=== PATIENT | male | born 1950 | race Caucasian/White ===

== ENCOUNTER 2018-11-02 07:01 | Day surgery (SDC) | payer OTHER, MEDICARE ==
--- NOTE | 2018-11-01 14:43 | RAD REPORT ---
EXAM DESCRIPTION: RAD - Chest Pa And Lat (2 Views) - 11/01/2018 2:33 pm CLINICAL HISTORY: preop, pending soft tissue mass removal, hypertension COMPARISON: Portable exam June 2016, two view exam March 2016 TECHNIQUE: PA and lateral views of the chest were obtained. FINDINGS: The lungs are clear of peripheral mass or infiltrate. No failure or volume overload. Inter stitial lung pattern matches prior imaging. No mediastinal or hilar abnormality. Trachea is in the mi dline. Heart size is normal and central vasculature is within normal limits. No pleural effusion o r pneumothorax seen. No acute bony finding noted. No aortic abnormality. IMPRESSION: Mild chronic interstitial lung disease matching prior imaging. No acute finding.
[2018-11-01 15:11] LABS: Absolute Lymphocytes (CBC) 1.9 K/uL (0.7-4.9); Hematocrit 48.9 % (39.6-49.0); Lymphocytes % 20.9 % (15.3-44.8); MPV 8.3 fL (7.6-11.3)
[2018-11-01 15:34] LABS: Potassium 3.6 mmol/L (3.5-5.1)
[2018-11-02] MEDS ORDERED: Ringers Lactate 1,000 ML IV ONE (07:18)
[2018-11-02] MEDS ORDERED: PROPOFOL 200 MG/20 ML VIAL IV ONE (07:30)
[2018-11-02] MEDS ORDERED: FENTANYL CITR 100 MCG/2 ML ONE (07:30)
[2018-11-02] MEDS ORDERED: MIDAZOLAM HCL 2 MG/2 ML INJ ONE (07:31)
[2018-11-02] MEDS ORDERED: LIDOCAINE 2% MPF 5 ML VIAL ONE (07:31)
[2018-11-02] MEDS ORDERED: ONDANSETRON 4 MG/2 ML VIAL ONE (07:34)
[2018-11-02] MEDS ORDERED: CEFAZOLIN/SWI 1gm 1 GM/10 ML SYR ONE (07:34)
[2018-11-02] MEDS ORDERED: ROCURONIUM 50 MG/5 ML VIAL IV ONE (07:35)
[2018-11-02] MEDS ORDERED: GLYCOPYRROLATE 0.2 MG/ML SYR ONE (08:20)
[2018-11-02] MEDS ORDERED: EPHEDRINE SULF 50 MG/ML VIAL ONE (08:22)
[2018-11-02] MEDS ORDERED: NS 0.9% VIAL 20 ML ONE (08:23)
--- NOTE | 2018-11-02 08:55 | P.BOP ---
Preoperative diagnosis: tender erythematous posterior neck mass Postoperative diagnosis: same Primary procedure: Excisional biopsy tender erythematous posterior neck mass 2.5 x 2.5 x 1.5cm Power Tong Operator: ILDA CALERO (UX RESEARCHER) Estimated blood loss: <10cc Specimen: mass Findings: as above Anesthesia: General Complications: None Transferred to: Recovery Room Condition: Good
--- NOTE | 2018-11-02 09:25 | EKG ---
Test Date: 2018-11-01 Test Time: 14:13:36 Lean Manufacturing Leader: VIRGINIE MEASUREMENT RESULTS: Intervals: Rate: 66 GA: 184 QRSD: 108 QT: 396 QTc: 415 [place]: P: 57 GA: 184 QRS: 21 T: 50 INTERPRETIVE STATEMENTS: Normal sinus rhythm Incomplete right bundle branch block Borderline ECG Compared to ECG 06/09/2016 06:42:53 Incomplete right bundle-branch block now present ST (T wave) deviation no longer present Electronically Signed On 11-02-18 09:24:02 CDT by Rebel Durant
[2018-11-02 11:20] VITALS: BP 116/66; TEMP 97.4; O2SAT 92
--- NOTE | 2018-11-02 19:49 | DS ---
Date of Discharge: 11/02/2018 Diagnosis: Tender erythematous posterior neck mass. Procedure: Excisional biopsy of tender erythematous posterior neck mass. Disposition: Home. Activity: As tolerated. No heavy lifting. Followup: Follow up in my office in 1 week. Call for appointment [phone]. Keep area dry for 48 ho urs, then may shower, then after that may remove outer dressings, put triple antibiotic and a gauze. Medications: Include Bactrim DS p.o. b.i.d., and Tylenol No. 3 every 4 hours p.r.n. pain. RONAN/BLANCA Voice ID: [id number] Report ID: [id number]
--- NOTE | 2018-11-02 20:10 | OP ---
Date of Procedure: 11/02/2018 Surgeon: Brenton Martínez MD Chute Tapper: KAMRAN Milligan. Postoperative Diagnosis: Tender erythematous posterior neck mass. Postoperative Diagnosis: Tender erythematous posterior neck mass. Procedure: Excisional biopsy of erythematous posterior neck mass 2.5 x 2.5 x 1.5 cm. Specimen: Mass. Anesthesia: General plus local. Indications: This is a case of a 67-year-old patient, comes to us with a tender erythematous, hand iii cutter ior neck mass very tender, so case was booked under Anesthesia. no purulent discharge at this moment. The benefits, alternatives, and risks of excision fully explained which include but are not limited to infection, bleeding, damage to adjacent structures, anesthesia complication, recurren ce, CA, and even . He also understands this may not relieve any symptoms. He might need more t potts one surgical intervention. He may require wound care. He signed a consent. The area of concern was marked by me and the patient in the holding room. Description Of Procedure: The patient was brought to the operating room, placed in supine position. Anesthesia was done without complication. Then, the patient was placed in lateral decubitus positio n with proper protection. A time-out was called. A neck was prepped and draped in a sterile fashion . Local anesthesia was applied, followed by a wedge incision of the skin with gross negative margins . Incision was carried down all the way down to deep subcutaneous tissue. The mass was excised, mar ked for orientation. Area was irrigated. Hemostasis was obtained and then closed in layers with 3-0 chromic deep and then 3-0 nylon on the skin. The sponge count, instrument counts were correct. The patient tolerated the procedure well. The patient was se nt to recovery in stable condition. RONAN/BLANCA Voice ID: [id number] Report ID: [id number]
== END 2018-11-02 10:23 | disposition home or self-care (01) ==
LOC: OR 07:01
PROVIDERS: ATTEND Surgery
PROC: 0JB40ZZ Excision of Right Neck Subcutaneous Tissue and Fascia, Open Approach (ICD-10-PCS; principal; 2018-11-02 08:15)
DX: R22.1 Localized swelling, mass and lump, neck (principal); I10 Essential (primary) hypertension; G47.33 Obstructive sleep apnea (adult) (pediatric); K21.9 Gastro-esophageal reflux disease without esophagitis; F17.210 Nicotine dependence, cigarettes, uncomplicated; Z88.3 Allergy status to other anti-infective agents; Z88.8 Allergy status to other drugs, medicaments and biological substances; Z82.49 Family history of ischemic heart disease and other diseases of the circulatory system
CPT/HCPCS: 93005; 85025; 80048; 36415; 88304; 71046; 11423; J2704; J2250; J3010; J0690; J2405; 88305

== ENCOUNTER 2019-11-27 19:04 | Inpatient (IN) | payer OTHER, MEDICARE ==
--- OUTSIDE RECORDS SUMMARY | 2019-11-27 19:07 | XMS REPORT | Continuity of Care Document ---
:1950 Author Organization [facility] t Address [address] [place] [address] Care Team Providers Name Role Phone Unavailable Unavailable Unavailable Payers Payer Name Policy Type Policy Number Effective Date Expiration Date S ource Problems This patient has no known problems. Allergies, Adverse Reactions, Alerts Allergy Allergy Status Severity Reaction(s) Onset Inactive Treating Comm ents Source Name Type Date Date Clinician sulfamet DA Active SV 2018-02 [facility] hoxazole 03-17 00:00: [address] trimetho DA Active SV 2018-02 [facility] prim 03-17 00:00: [address] levoflox DA Active CO 2018-0 [facility] acin 07-20 00:00: [address] atorvast DA Active CO 2018- [facility] atin 07-20 00:00: [address] Medications This patient has no known medications. Procedures This patient has no known procedures. Results Test Description Test Time Test Comments Results Result Comments Source LIPID PROFILE (CORONARY RISK) 2019-01-14 08:51:00 Test Item Value Reference Range Interpretation Comme nts TRIGLYCERIDES (test code = TRIG) 108 MG/DL TRIGLYCERIDES REFERENCE RANGE:Normal: < 150 mg/dLBorderline High: 150-199 m g/dLHigh: 200-499 mg/dLVery High: >=500 mg/dL CHOLESTEROL (test code = CHOL) 139 MG/DL <200 HDL CHOLESTEROL (test code = HDL) 50 MG/DL 40-59 N LIPOPROTEIN LDL (test code = LDL) 69 MG/DL 0-99 N OPTIMAL........ .<100 mg/dLNEAR OPTIMAL/ABOVE OPTIMAL........ .100-129 mg/dL BORDERLINE HIGH.........13 0-159 mg/dL HI GH.........160-189 mg/dL VERY HIGH.........>/ = 190 mg/dL ADD ONLIPID PROFILE (CORONARY RISK)2019-01-14 08:40:00 Test Item Value Reference Range Interpretation Comments TRIGLYCERIDES (test 108 MG/DL TRIGLYCE RIDES code = TRIG) REFERENCE RANGE:Normal: < 150 mg/dLBorderline High: 150-199 mg/dLHi gh: 200-499 mg/dLVe ry High: >=500 mg/ dL CHOLESTEROL (test code 139 MG/DL <200 = CHOL) HDL CHOLESTEROL (test 50 MG/DL 40-59 N code = HDL) LIPOPROTEIN LDL (test MG/DL 0-99 code = LDL) ADD ONPROTHROMBIN [id number] 08:03:00 Test Item Value Reference Range Interpretation Comments PROTHROMBIN TIME 10.4 SECONDS 9.6-11.6 N PATIENT (test code = PTP) INTERNATIONAL NORMAL 1.0 0.8-1.1 N The INR is to be RATIO (test code = used only for INR) monitoring oral anticoagulantth erap y. INDICATION I NR VALUE ---- ---- ---- -------1. Prophylaxis, de ep venous thrombos is, including hig h risk surgery. 2.0 - 3.0 2. Prophylaxis, de ep venous thrombos is, hip surgery, treatment for d eep venous thrombosis or pulmonary prevention of systemic emboli sm in patients wit h valvular heart disease, atrial fibrillation, tissue heart va lve, or acute myocar dial infarction. 2.0 - 3 .0 3. Mechanical prosthesis hear t valves, recurrent syste gema embolism. 3.0 - 4.5 PTT [id number] 08:03:00 Test Item Value Reference Range Interpretation Comments PTT ACTIVATED (test code = APTT) 26.2 SECONDS 22.0-33.0 N BASIC METABOLIC [id number] 07:56:00 Test Item Value Reference Range Interpretation Comments SODIUM (test code = 139 MMOL/L 137-145 N NA) POTASSIUM (test code = 4.1 MMOL/L 3.5-5.1 N K) CHLORIDE (test code = 101 MMOL/L 98-107 N CL) CARBON DIOXIDE (test 31 MMOL/L 22-30 H code = CO2) GLUCOSE (test code = 114 MG/DL 74-106 H GLU) BLOOD UREA NITROGEN 26 MG/DL 9-20 H (test code = BUN) GLOMERULAR FILTRATION > 60 Report ing units: RATE (test code = GFR) ml/mi n/1.73 m2 (Modified MDRD Formula)Referen ce Range: > or = 6 0 ml/min/1.73 m2 CREATININE (test code 0.80 MG/DL 0.66-1.25 N = CREAT) CALCIUM (test code = 9.1 MG/DL 8.4-10.2 N CA) [id number] 07:56:00 Test Item Value Reference Range Interpretation Comments MAGNESIUM (test code = MAG) 2.3 MG/DL 1.6-2.3 N BASIC METABOLIC [id number] 07:55:00 Test Item Value Reference Range Interpretation Comments SODIUM (test code = 139 MMOL/L 137-145 N NA) POTASSIUM (test code = 4.1 MMOL/L 3.5-5.1 N K) CHLORIDE (test code = 101 MMOL/L 98-107 N CL) CARBON DIOXIDE (test MMOL/L 22-30 code = CO2) GLUCOSE (test code = MG/DL 74-106 GLU) BLOOD UREA NITROGEN MG/DL 9-20 (test code = BUN) GLOMERULAR FILTRATION > 60 Report ing units: RATE (test code = GFR) ml/mi n/1.73 m2 (Modified MDRD Formula)Referen ce Range: > or = 6 0 ml/min/1.73 m2 CREATININE (test code 0.80 MG/DL 0.66-1.25 N = CREAT) CALCIUM (test code = MG/DL 8.7-9.7 CA) [id number] 07:55:00 Test Item Value Reference Range Interpretation Comments MAGNESIUM (test code = MAG) MG/DL 1.6-2.3 BASIC METABOLIC [id number] 07:53:00 Test Item Value Reference Range Interpretation Comments SODIUM (test code = NA) 139 MMOL/L 137-145 N POTASSIUM (test code = K) 4.1 MMOL/L 3.5-5.1 N CHLORIDE (test code = CL) 101 MMOL/L 98-107 N CARBON DIOXIDE (test code = CO2) MMOL/L 22-30 GLUCOSE (test code = GLU) MG/DL 74-106 BLOOD UREA NITROGEN (test code = MG/DL 9-20 BUN) GLOMERULAR FILTRATION RATE (test code = GFR) CREATININE (test code = CREAT) MG/DL 0.66-1.25 CALCIUM (test code = CA) MG/DL 8.7-9.7 [id number] 07:53:00 Test Item Value Reference Range Interpretation Comments MAGNESIUM (test code = MAG) MG/DL 1.6-2.3 BASIC METABOLIC [id number] 07:52:00 Test Item Value Reference Range Interpretation Comments SODIUM (test code = NA) MMOL/L 137-145 POTASSIUM (test code = K) MMOL/L 3.5-5.1 CHLORIDE (test code = CL) 101 MMOL/L 98-107 N CARBON DIOXIDE (test code = CO2) MMOL/L 22-30 GLUCOSE (test code = GLU) MG/DL 74-106 BLOOD UREA NITROGEN (test code = MG/DL 9-20 BUN) GLOMERULAR FILTRATION RATE (test code = GFR) CREATININE (test code = CREAT) MG/DL 0.66-1.25 CALCIUM (test code = CA) MG/DL 8.7-9.7 [id number] 07:52:00 Test Item Value Reference Range Interpretation Comments MAGNESIUM (test code = MAG) MG/DL 1.6-2.3 CBC W/AUTO [id number] 07:30:00 Test Item Value Reference Range Interpretation Comments WHITE BLOOD CELL (test code = 10.1 K/MM3 3.8-9.8 H WBC) RED BLOOD CELL (test code = 4.90 M/MM3 3.95-5.67 N RBC) HEMOGLOBIN (test code = HGB) 15.0 G/DL 12.4-16.7 N HEMATOCRIT (test code = HCT) 44.2 % 35.9-49.5 N MEAN CELL VOLUME (test code = 90 fL 81.7-96.1 N MCV) MEAN CELL HGB (test code = MCH) 30.6 pg 27.6-33.2 N MEAN CELL HGB CONCETRATION 33.9 % 32.9-35.5 N (test code = MCHC) RED CELL DISTRIBUTION WIDTH 14.3 % 12.1-15.2 N (test code = RDW) PLATELET COUNT (test code = 258 K/MM3 129-368 N PLT) MEAN PLATELET VOLUME (test code 9.6 fl 7.4-10.4 N = MPV) NEUTROPHIL % (test code = NT%) 75.8 % 43-75 H IMMATURE GRANULOCYTE % (test 0.9 % 0.0-2.0 N code = IG%) LYMPHOCYTE % (test code = LY%) 13.1 % 14-44 L MONOCYTE % (test code = MO%) 9.8 % 4-13 N EOSINOPHIL % (test code = EO%) 0.3 % 0-6 N BASOPHIL % (test code = BA%) 0.1 % 0-2 N NUCLEATED RBC % (test code = 0.0 % 0-1.0 N NRBC%) NEUTROPHIL # (test code = NT#) 7.65 K/mm3 2.0-7.6 H IMMATURE GRANULOCYTE # (test 0.09 x10 3/uL 0-0.03 H code = IG#) LYMPHOCYTE # (test code = LY#) 1.32 K/mm3 1.0-3.8 N MONOCYTE # (test code = MO#) 0.99 K/mm3 0.1-0.8 H EOSINOPHIL # (test code = EO#) 0.03 K/mm3 0.0-0.2 N BASOPHIL # (test code = BA#) 0.01 K/mm3 0.0-0.2 N NUCLEATED RBC # (test code = 0.00 K/mm3 0.0-0.1 N NRBC#)
[2019-11-27 21:00] LABS: Basophils % 0.5 % (0-1.3); Hematocrit 44.4 % (39.6-49.0); Lymphocytes % 17.6 % (15.3-44.8); MPV 7.8 fL (7.6-11.3); RBC Red Blood Cell Count 4.93 M/uL (4.33-5.43)
--- NOTE | 2019-11-27 21:01 | RAD REPORT ---
EXAM DESCRIPTION: RAD - Foot Right 3 View - 11/27/2019 8:15 pm CLINICAL HISTORY: PAIN, chronic right foot wound with increasing pain COMPARISON: Foot Right 3 View dated 11/06/2019 FINDINGS: No fracture, dislocation or periosteal reaction. No acute or destructive bone process. Deg enerative change at the first MTP joint is relatively mild. Soft tissues over the dorsum of the foot are more edematous than seen in October. No air or foreign body. IMPRESSION: No acute bone or joint finding. Increased soft tissue thickening and edema over the dorsum of the foot. No air or foreign body in the soft tissues.
[2019-11-27 21:25] LABS: C-Reactive Protein 3.62 mg/L (<3.00)
[2019-11-27 21:27] LABS: Urine Blood NEGATIVE (NEG); Urine Glucose NEGATIVE (NEG); Urine Protein NEGATIVE (NEG); Urine Specific Gravity <1.005 (1.005-1.030)
--- NOTE | 2019-11-27 21:34 | EDPHYS ---
Physician Documentation [facility] Name: Bronson Tyler Age: 68 yrs Sex: Male : 1950 Arrival Date: 11/27/2019 Time: 19:07 Bed 20 Private MD: ED Physician Rubens Aguila HPI: 11/26 19:50 This 68 yrs old Male presents to ER via Ambulatory with complaints of Wound cp Infection, FOOT. 19:50 The patient presents with cellulitis of the right foot. cp 19:50 Description: draining, erythematous, swollen, warm. Onset: The symptoms/episode cp began/occurred last month. Possible cause(s): Patient reports dropping trailer onto foot last month day weekend. Patient reports being placed initially on Amoxicillin for infection of right foot without resolution. Has been treated at wound care by DR Benson and referred to ED for evaluation. Patient reports having allergic reaction after taking 5 days of Doxycycline for infection. Historical: - Allergies: 19:31 Levaquin; ll1 19:31 Lipitor; ll1 19:31 Bactrim; ll1 - PMHx: 19:31 Hyperlipidemia; Hypertension; ll1 - PSHx: 19:31 Appendectomy; ll1 - Immunization history:: Flu vaccine is up to date. - Social history:: Smoking status: Patient reports the use of cigarette tobacco products, smokes one pack cigarettes per day. ROS: 19:55 Constitutional: Negative for body aches, chills, fever, poor PO intake. cp 19:55 Eyes: Negative for injury, pain, redness, and discharge. cp 19:55 ENT: Negative for ear pain, sore throat, difficulty swallowing, difficulty handling secretions. 19:55 Cardiovascular: Negative for chest pain, palpitations. 19:55 Respiratory: Negative for cough, shortness of breath, wheezing. 19:55 Abdomen/GI: Negative for abdominal pain, nausea, vomiting, and diarrhea. 19:55 Skin: Positive for cellulitis, of the right foot and right lower leg. 19:55 Neuro: Negative for altered mental status, headache, weakness. 19:55 All other systems are negative. Exam: 20:05 Constitutional: The patient appears in no acute distress, alert, awake, non-toxic, well cp developed, well nourished. 20:05 Head/Face: Normocephalic, atraumatic. cp 20:05 Eyes: Periorbital structures: appear normal, Conjunctiva: normal, no exudate, no injection, Lids and lashes: appear normal, bilaterally. 20:05 ENT: External ear(s): are unremarkable, Nose: is normal, Posterior pharynx: Airway: no evidence of obstruction, patent. 20:05 Chest/axilla: Inspection: normal. 20:05 Cardiovascular: Rate: normal, Rhythm: regular, Pulses: Pulses are 2+ in right dorsalis pedis artery. Edema: is not appreciated, JVD: is not appreciated. 20:05 Respiratory: the patient does not display signs of respiratory distress, Respirations: normal, no use of accessory muscles, no retractions, labored breathing, is not present, Breath sounds: are clear throughout, no decreased breath sounds, no stridor, no wheezing. 20:05 Abdomen/GI: Inspection: abdomen appears normal. 20:05 Skin: cellulitis, that is moderate, on the right foot and right lower leg, noted "golf ball" size open wound extending through dermis layer dorsum right foot with scant purulent drainage, advancing erythema extending proximally to lower right leg and mild swelling. 20:05 Neuro: Orientation: to person, place \\T\\ time. Mentation: is normal. Vital Signs: 19:28 BP 154 / 68; Pulse 79; Resp 17; Temp 98.5; Pulse Ox 97% ; Pain 0/10; ll1 19:30 BP 135 / 62; Pulse 80; Resp 18; Temp 98.1; Pulse Ox 97% on R/A; Pain 4/10; jv1 19:32 Weight 86.18 kg; Height 5 ft. 11 in. (180.34 cm); ll1 20:30 BP 131 / 80; Pulse 78; Resp 17; Temp 98.1; Pulse Ox 98% on R/A; Pain 2/10; jv1 21:30 BP 140 / 79; Pulse 70; Resp 18; Temp 98.0; Pulse Ox 98% ; Pain 0/10; jv1 22:21 BP 137 / 72; Pulse 75; Resp 18; Temp 98.1; Pulse Ox 97% ; Pain 0/10; jv1 22:45 BP 134 / 71; Pulse 70; Resp 18; Temp 98.1; Pulse Ox 97% on R/A; Pain 0/10; jv1 19:32 Body Mass Index 26.50 (86.18 kg, 180.34 cm) ll1 MDM: 19:17 Patient medically screened. cp 20:00 Differential diagnosis: abscess, cellulitis, sepsis, osteomyelitis. cp 21:30 Data reviewed: vital signs, nurses notes, lab test result(s), radiologic studies, plain cp films. Physician consultation: Prince Evonne OBRIEN was called at 21:30, was contacted at 21:30, regarding admission, to the medical/surgical unit. patient's condition. 11/26 19:49 Order name: ESR; Complete Time: 21:28 cp 11/26 19:49 Order name: CRP; Complete Time: 21:28 cp 11/26 19:49 Order name: Blood Culture Adult (2) cp 11/26 19:49 Order name: Wound Culture cp 11/26 19:49 Order name: CBC with Diff; Complete Time: 21:28 cp 11/26 21:07 Interpretation: Normal except: WBC 11.2. cp 11/26 19:49 Order name: BMP; Complete Time: 21:28 cp 11/26 19:47 Order name: XRAY Foot RIGHT 3 View; Complete Time: 21:07 cp 11/26 19:49 Order name: Procalcitonin; Complete Time: 21:07 cp 11/26 19:49 Order name: Lactate; Complete Time: 20:58 cp 11/26 19:49 Order name: IV; Complete Time: 20:45 cp 11/26 21:10 Order name: Urine Dipstick--Ancillary (enter results); Complete Time: 21:28 mw2 Administered Medications: 21:41 Dru grams of (vancoMYCIN 1 grams, NS 0.9% 250 ml) Route: IVPB; Rate: 125 ml/hr; jv1 Infused Over: 2 hrs; Site: right forearm; 22:55 Follow up: Response: No adverse reaction; IV Status: Infusion continued upon admission jv1 Disposition: 11/27 00:01 Co-signature as Attending Physician, Rubens Aguila MD. pkl Disposition: 11/27/19 21:33 Hospitalization ordered by Prince Evonne for Inpatient Admission. Preliminary diagnosis are Cellulitis of right lower limb, Open wound of foot - right, Failed Outpatient Therapy. - Bed requested for Telemetry/MedSurg (Inpatient). - Status is Inpatient Admission. jb4 - Condition is Stable. - Problem is an ongoing problem. - Symptoms are unchanged. Signatures: Dispatcher [employer] EDRubens Greene MD MD pkl Page, Corey, PA PA cp Xochilt Davila, RN RN Brandon Carrillo, ANDREIA RN jb4 Moira Boo RN RN jv1 Jody Roldan RN RN ll1 Corrections: (The following items were deleted from the chart) 11/26 21:34 21:33 Hospitalization Ordered by Prince Evonne OBRIEN for Inpatient Admission. Preliminary cp diagnosis is Cellulitis of right lower limb; Open wound of foot - right. Bed requested for Telemetry/MedSurg (Inpatient). Status is Inpatient Admission. Condition is Stable. Problem is an ongoing problem. Symptoms are unchanged. 21:59 21:34 11/27/2019 21:33 Hospitalization Ordered by Prince Evonne OBRIEN for Inpatient cg Admission. Preliminary diagnosis is Cellulitis of right lower limb; Open wound of foot - right; Failed Outpatient Therapy. Bed requested for Telemetry/MedSurg (Inpatient). Status is Inpatient Admission. Condition is Stable. Problem is an ongoing problem. Symptoms are unchanged. 23:08 21:59 11/27/2019 21:33 Hospitalization Ordered by Prince Evonne OBRIEN for Inpatient jb4 Admission. Preliminary diagnosis is Cellulitis of right lower limb; Open wound of foot - right; Failed Outpatient Therapy. Bed requested for Telemetry/MedSurg (Inpatient). Status is Inpatient Admission. Condition is Stable. Problem is an ongoing problem. Symptoms are unchanged.
--- NOTE | 2019-11-27 21:34 | ER ---
Nurse's Notes [facility] Name: Bronson Tyler Age: 68 yrs Sex: Male : 1950 Arrival Date: 11/27/2019 Time: 19:07 Bed 20 Private MD: Diagnosis: Cellulitis of right lower limb;Open wound of foot-right;Failed Outpatient Therapy Presentation: 11/26 19:28 Chief complaint: Patient states: Dropped a tail gate trailer onto right foot day ll1 weekend. Has had wound to top of foot since. Wound care once weekly. States it has gotten red in the past 3 days. No fever. Sent in for evaluation of foot infection. Coronavirus screen: Client denies travel out of the [place] in the last 14 days. At this time, the client does not indicate any symptoms associated with coronavirus-19. Ebola Screen: Patient denies travel to an Ebola-affected area in the 21 days before illness onset. Initial Sepsis Screen: Does the patient meet any 2 criteria? No. Patient's initial sepsis screen is negative. Does the patient have a suspected source of infection? Yes: Skin breakdown/wound. Risk Assessment: Do you want to hurt yourself or someone else? Patient reports no desire to harm self or others. Onset of symptoms was November 25, 2019. 19:28 Method Of Arrival: Ambulatory ll1 19:28 Acuity: GHANSHYAM 3 ll1 Historical: - Allergies: 19:31 Levaquin; ll1 19:31 Lipitor; ll1 19:31 Bactrim; ll1 - PMHx: 19:31 Hyperlipidemia; Hypertension; ll1 - PSHx: 19:31 Appendectomy; ll1 - Immunization history:: Flu vaccine is up to date. - Social history:: Smoking status: Patient reports the use of cigarette tobacco products, smokes one pack cigarettes per day. Screenin:30 Abuse screen:. Nutritional screening: No deficits noted. Tuberculosis screening: No jv1 symptoms or risk factors identified. Fall Risk None identified. Assessment: 19:30 General: Appears in no apparent distress. uncomfortable, well groomed, Behavior is jv1 calm, cooperative, appropriate for age. Pain: Complains of pain in right foot Pain does not radiate. Pain currently is 4 out of 10 on a pain scale. Quality of pain is described as aching, Pain began redness began 3 days ago. Neuro: Level of Consciousness is awake, alert, obeys commands, Oriented to person, place, time, situation, Appropriate for age Payer Specialist are equal bilaterally Moves all extremities. Gait is steady, Speech is normal. Cardiovascular: Denies chest pain, Heart tones S1 S2 Capillary refill < 3 seconds. Respiratory: Airway is patent Respiratory effort is even, unlabored, Respiratory pattern is regular, symmetrical, Breath sounds are clear bilaterally. GI: No signs and/or symptoms were reported involving the gastrointestinal system. Abdomen is round non-distended. : No signs and/or symptoms were reported regarding the genitourinary system. EENT: No signs and/or symptoms were reported regarding the EENT system. Derm: Wound noted right foot. Musculoskeletal: No signs and/or symptoms reported regarding the musculoskeletal system. Capillary refill < 3 seconds, Range of motion: intact in all extremities. Injury Description: patient stated he got the wound when his truck's tailgate fell on it on weekend. 20:30 Reassessment: Patient appears in no apparent distress at this time. No changes from jv1 previously documented assessment. Patient and/or family updated on plan of care and expected duration. Pain level reassessed. Patient is alert, oriented x 3, equal unlabored respirations, skin warm/dry/pink. Patient denies pain at this time. 21:30 Reassessment: Patient appears in no apparent distress at this time. No changes from jv1 previously documented assessment. Patient and/or family updated on plan of care and expected duration. Pain level reassessed. Patient is alert, oriented x 3, equal unlabored respirations, skin warm/dry/pink. Provider in the room with pt and explained that he needs to be hospitalized. Patient denies pain at this time. 21:52 Reassessment: hospitalist in the room with pt. jv1 22:21 Reassessment: Patient appears in no apparent distress at this time. No changes from jv1 previously documented assessment. Patient and/or family updated on plan of care and expected duration. Pain level reassessed. Patient is alert, oriented x 3, equal unlabored respirations, skin warm/dry/pink. Patient denies pain at this time. 22:45 Reassessment: Patient appears in no apparent distress at this time. No changes from jv1 previously documented assessment. Patient and/or family updated on plan of care and expected duration. Pain level reassessed. Patient is alert, oriented x 3, equal unlabored respirations, skin warm/dry/pink. Patient denies pain at this time. 22:54 Reassessment: called report to Emperatriz Galvan RN. jv1 Vital Signs: 19:28 BP 154 / 68; Pulse 79; Resp 17; Temp 98.5; Pulse Ox 97% ; Pain 0/10; ll1 19:30 BP 135 / 62; Pulse 80; Resp 18; Temp 98.1; Pulse Ox 97% on R/A; Pain 4/10; jv1 19:32 Weight 86.18 kg; Height 5 ft. 11 in. (180.34 cm); ll1 20:30 BP 131 / 80; Pulse 78; Resp 17; Temp 98.1; Pulse Ox 98% on R/A; Pain 2/10; jv1 21:30 BP 140 / 79; Pulse 70; Resp 18; Temp 98.0; Pulse Ox 98% ; Pain 0/10; jv1 22:21 BP 137 / 72; Pulse 75; Resp 18; Temp 98.1; Pulse Ox 97% ; Pain 0/10; jv1 22:45 BP 134 / 71; Pulse 70; Resp 18; Temp 98.1; Pulse Ox 97% on R/A; Pain 0/10; jv1 19:32 Body Mass Index 26.50 (86.18 kg, 180.34 cm) ll1 ED Course: 19:07 Patient arrived in ED. bp1 19:15 Nicholas Franco PA is PHCP. cp 19:15 Rubens Aguila MD is Attending Physician. cp 19:23 Arm band placed on Patient placed in an exam room, on a stretcher. ll1 19:30 Triage completed. ll1 19:30 Patient has correct armband on for positive identification. Bed in low position. Call jv1 light in reach. Side rails up X 1. 20:00 Inserted saline lock: 22 gauge in right forearm, using aseptic technique. Missed jv1 attempt(s): 20 gauge in left antecubital area. 20:15 XRAY Foot RIGHT 3 View In Process Unspecified. EDMS 21:32 Prince Douglass MD is Hospitalizing Provider. cp 22:22 No provider procedures requiring assistance completed. Patient admitted, IV remains in jv1 place. Administered Medications: 21:41 Dru grams of (vancoMYCIN 1 grams, NS 0.9% 250 ml) Route: IVPB; Rate: 125 ml/hr; jv1 Infused Over: 2 hrs; Site: right forearm; 22:55 Follow up: Response: No adverse reaction; IV Status: Infusion continued upon admission jv1 Outcome: 21:33 Decision to Hospitalize by Provider. cp 22:22 Admitted to Med/surg via wheelchair, room 231. jv1 22:22 Condition: stable 23:08 Patient left the ED. jb4 Signatures: Dispatcher [employer] EDMS Nicholas Franco PA PA cp Brandon Carrillo RN RN jb4 Moira Boo RN RN jv1 Jody Roldan RN RN ll1 Saumya Chester [facility]
[2019-11-27] MEDS ORDERED: NA CHLORIDE 0.9% 250 ML ONE (21:47)
[2019-11-27] MEDS ORDERED: VANCOMYCIN 1 GM/VIAL ONE (21:47)
--- NOTE | 2019-11-27 22:10 | P.HP ---
Certification for Inpatient Patient admitted to: Inpatient With expected LOS: >2 Midnights Practitioner: I am a practitioner with admitting privileges, knowledge of patient current condition, hospital course, and medical plan of care. Services: Services provided to patient in accordance with Admission requirements found in Title 42 Section 412.3 of the Code of Federal Regulations Patient History Date of Service: 11/27/19 Reason for admission: Right foot pain and swelling History of Present Illness: Patient is a 68-year-old male with [facility], [facility], hypertension, hyperlipidemia. He presents to the ER complaining of worsening her right foot swelling and pain. Patient had an open injury to his R foot approximately 1 month ago when the tail end of his trailer fell on the dorsum of his right foot. It created an open shallow wound. He was seen by Dr. Levi from surgery at the [facility] and was treated with silver nitrate. His symptoms improved after completing a 10-day course of amoxicillin, which she took with doxycycline but the latter had to be discontinued due to an allergic reaction. Patient briefly improved for re- experiencing the symptoms again which are mainly ankle swelling, redness on the dorsum of foot and pain. He denies any systemic signs and symptoms of fever and chills. His PCP performed a superficial wound cultures on 11/05 and it showed MRSA. Allergies levofloxacin [From Levaquin] Allergy (Severe, Verified 11/02/18 07:41) Anaphylaxis atorvastatin calcium [From Lipitor] Allergy (Verified 11/02/18 07:41) Anaphylaxis Home Medications: Amlodipine Besylate 10 mg PO [id number] 06/08/16 Aspirin [Aspirin EC 81 MG] 81 mg PO DAILY 06/08/16 Carvedilol 25 mg PO BID 06/08/16 Clonidine HCl 0.2 mg PO BID 06/08/16 Cyanocobalamin [Vitamin B-12*] 5,000 mcg PO DAILY 06/08/16 Dexlansoprazole [Dexilant] 60 mg PO DAILY 06/08/16 Docosahexanoic AC/Epa [Fish Oil 1,000 MG*] 1,400 mg PO DAILY 06/08/16 Ferrous Fumarate/Vit Bcomp&C [Super B-Complex Caplet] 1 each PO DAILY 06/08/16 Hydralazine HCl 25 mg PO BID 06/08/16 Meloxicam 15 mg PO DAILY 06/08/16 Multivitamin [Multiple Vitamins] 1 tab PO DAILY 06/08/16 [place]-3 Fatty Acids [[place]-3] 1,000 mg PO DAILY 06/08/16 Rosuvastatin [Crestor*] 20 mg PO DAILY 06/08/16 Ubidecarenone [Co Q-10] 200 mg PO DAILY 06/08/16 Fluticasone/Salmeterol [Advair 250/50 Diskus] 1 puff IH BID #1 disk 06/10/16 Irbesartan [Avapro] 150 mg PO BID 11/01/18 L.acidoph,Paracasei, B.lactis [Probiotic] 1 each PO DAILY 11/01/18 Magnesium Oxide [Magnesium] 250 mg PO DAILY 11/01/18 Codeine/APAP [Tylenol W/Codeine #3 tab] 1 tab PO Q4HP PRN #20 tab 11/02/18 Sulfamethoxazole/Trimethoprim [Bactrim Ds Tablet] 1 each PO BID #12 tablet 11/02/18 - Past Medical/Surgical History Diabetic: No -: HTN -: Sleep apnea -: Melanoma that was excised - Social History Alcohol use: No CD- Drugs: No Caffeine use: Yes Physical Examination - Physical Exam General: Alert, In no apparent distress, Cooperative HEENT: Atraumatic, Normocephalic, EOMI Neck: Supple Respiratory: Clear to auscultation bilaterally, Normal air movement Cardiovascular: Normal pulses, Regular rate/rhythm, Normal S1 S2 Gastrointestinal: Normal bowel sounds, Soft and benign, Non-distended, Other (Obese abdomen) Musculoskeletal: No clubbing, No contractures, Swelling, Erythema, Tenderness, Warmth Integumentary: No rashes, Skin breakdown, Tenderness/swelling, Erythema, Warmth Neurological: Normal speech, Sensation intact, Normal affect - Studies Laboratory Data (last 24 hrs) 11/27/19 20:48: Sodium 139, Potassium 4.0, BUN 13, Creatinine 1.10, Glucose 147 H 11/27/19 20:48: WBC 11.2 H, Hgb 15.3, Hct 44.4, Plt Count 229 Assessment and Plan - Problems (Diagnosis) (1) Open wound of right foot Current Visit: Yes Status: Acute (2) Open wound of right foot with complication Current Visit: No Status: Acute (3) GERD (gastroesophageal reflux disease) Current Visit: No Status: Chronic Qualifiers: Esophagitis presence: esophagitis presence not specified Qualified Code(s): K21.9 - Gastro-esophageal reflux disease without esophagitis (4) HTN (hypertension) Onset Date: 06/08/16 Current Visit: No Status: Chronic Qualifiers: Hypertension type: essential hypertension Qualified Code(s): I10 - Essential (primary) hypertension (5) Hyperlipidemia Current Visit: No Status: Chronic Qualifiers: Hyperlipidemia type: unspecified Qualified Code(s): E78.5 - Hyperlipidemia, unspecified (6) Obstructive sleep apnea Current Visit: No Status: Chronic (7) Tobacco abuse Current Visit: No Status: Chronic - Advance Directives Does patient have a Living Will: Yes Does patient have a Durable POA for Healthcare: No Physician Review Additional Text: Assessment 68 year old year old male with tobacco smoking, HTN, HLD and MAYTE admitted with a R foot cellulitis. He has a 2-inch size, non-healing shallow ulcer on the dorsum of the R foot. A RLE arterial Doppler on 11/05 showed mild peripheral artery disease. Wound cultures from 11/05 showed MRSA Open wound of R foot Peripheral vascular disease Tobacco smoking HTN HLD MAYTE PLAN Admit inpatient with telemetry Follow up blood and wound cultures from 11/26 Start vancomycin Consult Surgery (Dr. Levi) and wound care center
[2019-11-27] MEDS ORDERED: CODEINE 30MG/APAP 300MG TAB PO PRN (22:42)
[2019-11-27 23:56] VITALS: BMI 26.5
[2019-11-28] MEDS: PANTOPRAZOLE 40MG TABLET PO SCH (07:00)
[2019-11-28] MEDS: ASPIRIN EC 81 MG TAB PO SCH (08:49)
[2019-11-28] MEDS: cloNIDine HCL 0.1 MG TAB PO SCH ×2 (08:49→20:35)
[2019-11-28] MEDS: ROSUVASTATIN 10 MG TAB PO SCH (08:50)
[2019-11-28] MEDS: carvediloL 25 MG TAB PO SCH ×2 (08:50→17:00)
[2019-11-28] MEDS: MULTIVITAMIN TAB PO SCH (08:50)
[2019-11-28] MEDS ORDERED: OMEGA PO SCH (09:00)
[2019-11-28] MEDS ORDERED: HOME MED 1 EA UNK (Dexlansoprazole [Dexilant] 60 MG) PO SCH (09:00)
[2019-11-28] MEDS ORDERED: FATTY ACIDS PO SCH (09:00)
[2019-11-28] MEDS ORDERED: CYANOCOBALAMIN 1,000 MCG TAB PO SCH (09:00)
[2019-11-28] MEDS ORDERED: HOME MED 1 EA UNK (Fluticasone/Salmeterol [Advair 250/50 Diskus*] 1 PUFF) IH SCH (09:00)
[2019-11-28] MEDS ORDERED: DOCOSAHEXANOIC AC/EPA 1000 MG PO SCH (09:00)
[2019-11-28] MEDS: COENZYME Q10- 200 MG CAP PO SCH (09:00)
[2019-11-28] MEDS: VANCOMYCIN 1.25 GM in NA CHLORIDE 0.9% 250 ML IVPB SCH ×2 (10:31→20:36)
--- NOTE | 2019-11-28 12:19 | P.PN ---
Subjective Date of Service: 11/28/19 Chief Complaint: Right foot pain and swelling Patient currently has no complain. He has been afebrile. Physical Examination - Vital Signs Temperature: 97 F Blood Pressure: 153/77 Pulse: 68 Respirations: 18 Pulse Ox (%): 95 - Physical Exam General: Alert, In no apparent distress, Oriented x3 HEENT: Mucous membr. moist/pink Neck: Supple, JVD not distended Respiratory: Clear to auscultation bilaterally, Normal air movement Cardiovascular: No edema, Regular rate/rhythm, Normal S1 S2 Gastrointestinal: Normal bowel sounds, Soft and benign, No tenderness Musculoskeletal: No swelling Integumentary: Other (Shallow ulcer on the dorsum of right foot with spots of slough.) Neurological: Normal speech, Normal strength at 5/5 x4 extr - Studies Laboratory Data (last 24 hrs) 11/27/19 20:48: Sodium 139, Potassium 4.0, BUN 13, Creatinine 1.10, Glucose 147 H 11/27/19 20:48: WBC 11.2 H, Hgb 15.3, Hct 44.4, Plt Count 229 Microbiology Data (last 24 hrs): 11/27/19 20:05 Wound - Right Foot Gram Stain - Final Assessment And Plan - Current Problems (Diagnosis) (1) Open wound of right foot Current Visit: Yes Status: Acute (2) Open wound of right foot Current Visit: Yes Status: Acute (3) Tobacco abuse Current Visit: No Status: Chronic - Plan Nonhealing ulcer of the right foot. Wound culture prior to admission showing MRSA. Continue IV vancomycin. General surgery-Dr. Benson to see patient. Wound care Pain management as needed. Physician Review Additional Text: Assessment 68 year old year old male with tobacco smoking, HTN, HLD and MAYTE admitted with a R foot cellulitis. He has a 2-inch size, non-healing shallow ulcer on the dorsum of the R foot. A RLE arterial Doppler on 11/05 showed mild peripheral artery disease. Wound cultures from 11/05 showed MRSA Open wound of R foot Peripheral vascular disease Tobacco smoking HTN HLD MAYTE PLAN Admit inpatient with telemetry Follow up blood and wound cultures from 11/26 Start vancomycin Consult Surgery (Dr. Levi) and wound care center
--- NOTE | 2019-11-28 14:45 | P.CNS ---
Date of Consult: 11/28/19 PC: This 68-year-old male presented to the emergency room with severe pain in his right foot for diagnosis and treatment. HPC: Patient had a injury to his foot about 5 weeks ago. Has an open wound on the dorsum of his right foot. Has been slow to heal. He has been seen in the Wound Care Center. He has been treated with various entities in an effort to keep the wound clean and dry. He noticed over the last 48 hr that his foot has become in clean seen me red, swollen, and painful. PMH: Hypertension SOC: Allergies as listed above SYS REVIEW: Has been in relatively good health. No acute issues at the moment. O/E awake alert vital Signs are stay HEENT: Within normal limb Chest: Chest movement equal bilateral ABD: Saw LOCO: Has an open wound over the dorsum of his foot measuring approximately 5 cm x 3 cm. It is full-thickness skin loss. DATA: Elevated white cell count IMPRESSION: This patient was admitted for possible infection. He has been on vancomycin. I feel it may have been a more a a reaction to his medications for his surgical dressings peer PLAN: I have been talking to the patient in the Wound Care Center about doing a split-thickness skin graft once the wound had adequately debrided. I feel this is the opportune time to do it. I will take him tomorrow for a split-thickness skin graft from the right thigh to the right dorsum of his foot. Risks of this procedure have been discussed. The possibility of bleeding, infection, loss of graft as well as infection were explained. Grafted failure as well as contracture of the wounds were explained. He understands and wants to proceed.
[2019-11-29] MEDS: PANTOPRAZOLE 40MG TABLET PO SCH (05:41)
[2019-11-29] MEDS: carvediloL 25 MG TAB PO SCH (05:41)
[2019-11-29] MEDS: ASPIRIN EC 81 MG TAB PO SCH (09:00)
[2019-11-29] MEDS: ROSUVASTATIN 10 MG TAB PO SCH (09:00)
[2019-11-29] MEDS: COENZYME Q10- 200 MG CAP PO SCH (09:00)
[2019-11-29] MEDS: MULTIVITAMIN TAB PO SCH (09:00)
[2019-11-29] MEDS: cloNIDine HCL 0.1 MG TAB PO SCH ×2 (09:54→21:13)
[2019-11-29] MEDS: VANCOMYCIN 1.25 GM in NA CHLORIDE 0.9% 250 ML IVPB SCH ×2 (09:56→10:00)
[2019-11-29] MEDS ORDERED: DIPHENHYDRAMINE 50 MG/ML VIAL IV ONE (10:11)
--- NOTE | 2019-11-29 11:27 | EKG ---
Test Date: 2019-11-29 Test Time: 08:47:34 [employer] Operator: FAIZA MEASUREMENT RESULTS: Intervals: Rate: 54 MO: 178 QRSD: 110 QT: 434 QTc: 411 [place]: P: 65 MO: 178 QRS: 38 T: 50 INTERPRETIVE STATEMENTS: Sinus bradycardia Incomplete right bundle branch block Borderline ECG Compared to ECG 11/01/2018 14:13:36 Sinus rhythm no longer present Electronically Signed On 11-29-19 11:26:57 CDT by Tha Watters
[2019-11-29] MEDS ORDERED: MINERAL OIL, LITE 10 ML VIAL ONE ×2 (11:59→12:15)
[2019-11-29] MEDS ORDERED: Ringers Lactate 1,000 ML IV ONE (12:05)
[2019-11-29] MEDS ORDERED: propofoL 200 MG/20 ML VIAL IV ONE (12:14)
[2019-11-29] MEDS ORDERED: MIDAZOLAM HCL 2 MG/2 ML INJ ONE (12:15)
[2019-11-29] MEDS ORDERED: LIDOCAINE 2% MPF 5 ML VIAL ONE (12:15)
[2019-11-29] MEDS ORDERED: FENTANYL CITR 100 MCG/2 ML ONE (12:15)
--- NOTE | 2019-11-29 12:24 | P.PN ---
Date of Service: 11/29/19 S: Patient is comfortable today, did have some itchiness under his arms, was possibly from the IV antibiotics. Discussed the surgery with his and is comfortable about surgery today. O: Wound is clean A: Patient is received antibiotics, wound is clean, P: I will take him the operating room for split-thickness skin graft from his right thigh to the right dorsum foot. The risks of this procedure have been discussed. The possibility of bleeding, infection, failed graft, need for further surgeries and procedures as well as scar release have been described. He understands and wants us to proceed.
[2019-11-29] MEDS ORDERED: GLYCOPYRROLATE 0.2 MG/ML SYR ONE (13:07)
[2019-11-29] MEDS ORDERED: EPHEDRINE SULF 50 MG/ML VIAL ONE (13:19)
[2019-11-29] MEDS ORDERED: KETOROLAC 30 MG/ML INJ ONE (14:06)
[2019-11-29] MEDS ORDERED: HYDROMORPHONE HCL 1 MG/ML INJ ONE (14:29)
--- NOTE | 2019-11-29 14:56 | P.OP ---
Preoperative diagnosis: Open wound to the dorsum of the right foot Postoperative diagnosis: The same Primary procedure: Split-thickness skin graft from right thigh to dorsal right foot Anesthesia: General Estimated blood loss: Less than 10 cc Operative Technique: The patient brought the operating room and placed supine on the table the induction of adequate general anesthesia, the area of the right foot and right leg was prepped with a Betadine solution, draped in usual aseptic manner. Attention was turned towards the right upper thigh. This area was wiped down with alcohol to decrease the skin. Attention was now turned towards the dorsal right foot while the alcohol was trying. On the dorsum of the right foot the patient has an open wound measures approximately 3 inches x 1-1/2 inches. It is relatively clean at the moment. It was partially debrided using a cutting curette to lift off the fibrinous exudate again is down to we could bleeding base. A dressing was placed over the wound. Attention was now turned towards the right upper thigh. Using the dermatome a 1 inch wide 14,000 of an inch graft was taken. It was necessary to take 3 passes so we found a graft that was of adequate texture. It was then placed on the telegraphic typewriter mechanic and meshed at a ratio 1 1. The pieces skin was now placed over wound. It was tacked in place using chromic sutures. At this point, a piece of Adaptic was placed over the grafted area. This was then packed with cotton balls. A sponge was placed on top of this over which we placed a Tegaderm dressing. The dressing was now vacuumed by a placing a needle attached to the suction to completely take all air out. This hole was then covered with another piece of Tegaderm. Good pressure dressing having been applied, the right upper thigh was dressed with Adaptic and a Kerlix roll. It had been inject with of 0.25% Marcaine to allow for adequate analgesia during the postoperative period. A protective Orthopedic Blue was also placed over the foot to help mobilize it over the next few days until the graft takes. At the end of procedure he was stable when sent to the recovery room. Needle sponge instrument count were correct. Transferred to: Recovery Room Condition: Good
--- NOTE | 2019-11-29 15:09 | P.PN ---
Subjective Date of Service: 11/29/19 Chief Complaint: Right foot pain and swelling Patient currently has no complain. He is scheduled for skin graft of his right foot wound today. Physical Examination - Vital Signs Temperature: 97.1 F Blood Pressure: 151/82 Pulse: 66 Respirations: 18 Pulse Ox (%): 96 - Physical Exam General: Alert, In no apparent distress HEENT: Mucous membr. moist/pink Neck: Supple Respiratory: Clear to auscultation bilaterally, Normal air movement Cardiovascular: No edema, Regular rate/rhythm, Normal S1 S2 Gastrointestinal: Normal bowel sounds, Soft and benign, No tenderness Integumentary: Other (Ulcer at the dorsum of right foot.) Neurological: Other (Nonfocal.) - Studies Microbiology Data (last 24 hrs): 11/27/19 20:05 Wound - Right Foot Gram Stain - Final Assessment And Plan - Current Problems (Diagnosis) (1) Open wound of right foot Current Visit: Yes Status: Acute (2) Tobacco abuse Current Visit: No Status: Chronic - Plan Nonhealing ulcer of the right foot. Wound culture prior to admission showing MRSA. Continue IV vancomycin. Cultures: No growth to date. General surgery-Dr. Benson recommend skin graft today. Continue wound care. Pain management as needed.
[2019-11-29] MEDS ORDERED: FAMOTIDINE 20 MG/2 ML VIAL IV ONE (17:00)
[2019-11-29] MEDS: AMLODIPINE 10 MG TAB PO SCH (17:05)
[2019-11-29] MEDS: DIPHENHYDRAMINE 50 MG/ML VIAL IV PRN ×2 (17:06→23:04)
[2019-11-29] MEDS ORDERED: HYDRALAZINE HCL 20 MG/ML VIAL IV PRN (18:14)
[2019-11-30] MEDS: PANTOPRAZOLE 40MG TABLET PO SCH (05:00)
[2019-11-30] MEDS: DIPHENHYDRAMINE 50 MG/ML VIAL IV PRN (05:00)
[2019-11-30 05:45] LABS: Absolute Lymphocytes (CBC) 1.3 K/uL (0.7-4.9); Basophils % 0.9 % (0-1.3); Hematocrit 45.2 % (39.6-49.0); Lymphocytes % 14.9 % (15.3-44.8); MPV 8.2 fL (7.6-11.3); RBC Red Blood Cell Count 5.02 M/uL (4.33-5.43)
[2019-11-30 06:01] LABS: Potassium 3.7 mmol/L (3.5-5.1)
[2019-11-30 08:05] VITALS: BP 159/73; TEMP 97.7
--- NOTE | 2019-11-30 08:52 | P.DS ---
Admission Date: 11/27/19 Discharge Date: 11/30/19 Disposition: ROUTINE DISCHARGE Discharge Condition: FAIR Reason for Admission: Right foot pain and swelling - Problems (1) Open wound of right foot Status: Acute (2) Tobacco abuse Status: Chronic Brief History of Present Illness: 68-year-old gentleman presented to the emergency department due to pain and swelling of nonhealing ulcer on the dorsum of the right foot. Patient was being managed by Dr. Benson. He completed a course of antibiotics which included Augmentin and doxycycline with some improvement but later became worse with more pain and swelling. Previous culture of the ulcer yielded MRSA. Patient was admitted for further management. Hospital Course: Patient admitted to the medical floor and treated with IV vancomycin for MRSA. Repeat wound culture yielded no growth. He was complaining of itching and rash the bilateral underarm which could be secondary to allergic reaction. Patient was treated with IV Benadryl and Pepcid. He was seen and evaluated by Dr. Benson who did a skin graft. Antibiotics have been discontinued. Patient is deemed clinically stable for discharge. Wound instructions given by Dr. Benson. Vital Signs/Physical Exam: Temp Pulse Resp BP Pulse Ox 97.7 F 58 19 159/73 H 96 11/30/19 08:00 11/30/19 08:00 11/30/19 08:00 11/30/19 08:00 11/30/19 08:00 General: Alert, In no apparent distress Respiratory: Clear to auscultation bilaterally, Normal air movement Cardiovascular: No edema, Regular rate/rhythm, Normal S1 S2 Gastrointestinal: Normal bowel sounds, Soft and benign, No tenderness Musculoskeletal: No swelling, No erythema Integumentary: No erythema Neurological: Normal speech, Normal strength at 5/5 x4 extr Laboratory Data at Discharge: WBC 9.0 K/uL (4.3-10.9) D 11/30/19 05:23 Hgb 15.5 g/dL (13.6-17.9) 11/30/19 05:23 Hct 45.2 % (39.6-49.0) 11/30/19 05:23 Plt Count 230 K/uL (152-406) 11/30/19 05:23 Sodium 140 mmol/L (136-145) 11/30/19 05:23 Potassium 3.7 mmol/L (3.5-5.1) 11/30/19 05:23 BUN 13 mg/dL (7-18) 11/30/19 05:23 Creatinine 1.02 mg/dL (0.55-1.3) 11/30/19 05:23 Glucose 107 mg/dL (74-106) H 11/30/19 05:23 Home Medications: Amlodipine Besylate 10 mg PO DAILY 06/08/16 Aspirin [Aspirin EC 81 MG] 81 mg PO DAILY 06/08/16 Carvedilol 25 mg PO BID 06/08/16 Clonidine HCl 0.2 mg PO BID 06/08/16 Dexlansoprazole [Dexilant] 60 mg PO DAILY 06/08/16 Docosahexanoic AC/Epa [Fish Oil 1,000 MG*] 1,000 mg PO DAILY 06/08/16 Hydralazine HCl 50 mg PO TID 06/08/16 Meloxicam 15 mg PO DAILY 06/08/16 Rosuvastatin [Crestor*] 20 mg PO DAILY 06/08/16 Ubidecarenone [Co Q-10] 200 mg PO DAILY 06/08/16 L.acidoph,Paracasei, B.lactis [Probiotic] 1 each PO DAILY 11/01/18 Magnesium Oxide [Magnesium] 250 mg PO DAILY 11/01/18 Ferrous Fumarate/Vit Bcomp&C [Super B-Complex Caplet] 1 each PO DAILY 11/27/19 Mv-Mins/Folic/Lycopene/Ginkgo [One Daily Men's 50+ Tablet] 1 each PO DAILY 11/27/19 Nortriptyline HCl [Pamelor*] 10 mg PO DAILY 11/27/19 Irbesartan [Avapro*] 150 mg PO BID 11/28/19 Cyanocobalamin [Vitamin B-12*] 5,000 mcg PO DAILY #30 tab 11/30/19 Fluticasone/Salmeterol [Advair 250/50 Diskus*] 1 puff IH BID #0 11/30/19 Hydrocodone 7.5/APAP 325 [[place] 7.5/325 mg] 1 tab PO Q6H PRN #20 tab 11/30/19 Multivit,Ther Iron,Ca,FA & Min [Centrum Tablet*] 1 tab PO DAILY #30 tab 11/30/19 New Medications: Multivit,Ther Iron,Ca,FA & Min [Centrum Tablet*] 1 tab PO DAILY #30 tab Fluticasone/Salmeterol [Advair 250/50 Diskus*] 1 puff IH BID #0 Hydrocodone 7.5/APAP 325 [[place] 7.5/325 mg] 1 tab PO Q6H PRN #20 tab PRN Reason: Pain Cyanocobalamin [Vitamin B-12*] 5,000 mcg PO DAILY #30 tab Diet: AHA Activity: Ad meryl Followup: Brandon Benson MD [ACTIVE - CAN ADMIT] - (Next week Wednesday12/05/2019.) Time spent managing pt's care (in minutes): 37
[2019-11-30] MEDS: AMLODIPINE 10 MG TAB PO SCH (09:02)
[2019-11-30] MEDS: MULTIVITAMIN TAB PO SCH (09:02)
[2019-11-30] MEDS: cloNIDine HCL 0.1 MG TAB PO SCH (09:02)
[2019-11-30] MEDS: COENZYME Q10- 200 MG CAP PO SCH (09:03)
[2019-11-30] MEDS: ROSUVASTATIN 10 MG TAB PO SCH (09:03)
[2019-11-30] MEDS: ASPIRIN EC 81 MG TAB PO SCH (09:03)
[2019-11-30 09:12] VITALS: O2SAT 96
== END 2019-11-30 10:03 | disposition home or self-care (01) | DRG 577 ==
LOC: ER 19:04 → ERHOLD 21:35 → 2ND 22:57
PROVIDERS: ADMIT Internal Medicine; ATTEND Internal Medicine
PROC: 0HBHXZZ Excision of Right Upper Leg Skin, External Approach (ICD-10-PCS; 2019-11-29)
PROC: 0HRMX74 Replacement of Right Foot Skin with Autologous Tissue Substitute, Partial Thickness, External Approach (ICD-10-PCS; principal; 2019-11-29 12:30)
DX: S91.301A Unspecified open wound, right foot, initial encounter (principal); L03.115 Cellulitis of right lower limb; L97.519 Non-pressure chronic ulcer of other part of right foot with unspecified severity; E78.5 Hyperlipidemia, unspecified; I10 Essential (primary) hypertension; I73.9 Peripheral vascular disease, unspecified; G47.33 Obstructive sleep apnea (adult) (pediatric); F17.200 Nicotine dependence, unspecified, uncomplicated; K21.9 Gastro-esophageal reflux disease without esophagitis; B95.62 Methicillin resistant Staphylococcus aureus infection as the cause of diseases classified elsewhere; T78.40XA Allergy, unspecified, initial encounter; Z88.1 Allergy status to other antibiotic agents; Z88.8 Allergy status to other drugs, medicaments and biological substances; Z90.49 Acquired absence of other specified parts of digestive tract; Z79.82 Long term (current) use of aspirin; Z79.899 Other long term (current) drug therapy; Z79.891 Long term (current) use of opiate analgesic; Z20.828 Contact with and (suspected) exposure to other viral communicable diseases
CPT/HCPCS: 36415; 80048; 80202; 81003; 82565; 83605; 84145; 85025; 85652; 86140; 87040; 87070; 87205; 93005; 96365; 99285; J1170; J1200; J2250; J2704; J3010; J3370; J7050; J7120; U0002

== ENCOUNTER 2021-01-03 17:16 | Inpatient (IN) | payer OTHER, MEDICARE ==
--- OUTSIDE RECORDS SUMMARY | 2021-01-03 17:19 | XMS REPORT | Continuity of Care Document ---
:1950 Author Organization [facility] t Address [address] [place] [address] Care Team Providers Name Role Phone BRANDON Attending Clinician Unavailable Warren Foote Attending Clinician Unavailable YOLANDA Attending Clinician Unavailable Mike Barajas Attending Clinician Unavailable Corona Attending Clinician [phone] BRANDON Admitting Clinician Unavailable Mike Barajas Admitting Clinician Unavailable KNOW Admitting Clinician Unavailable Payers Payer Name Policy Type Policy Number Effective Date Expiration Date Severiano vargas [place]IC[place]: [id number] 2014 [employer] 00:00:00 [facility] [id number] 2020 OPTIONS (MEDICARE 00:00:00 SUPPLEMENT) MEDICARE-PART B 5 [id number] 2020 00:00:00 AARP/IND 4 [id number] 2020 00:00:00 Problems This patient has no known problems. Allergies, Adverse Reactions, Alerts Allergy Allergy Status Severity Reaction(s) Onset Inactive Treating Comm ents Source Name Type Date Date Clinician sulfamet DA Active SV 0 [facility] trimetho DA Active SV [facility] prim 11-05 00:[facility] levoflox DA Active IN 2020- [facility] acin 11-05 [facility] atorvast DA Active IN 2020-0 [facility] atin 11-05 [facility]: [facility] sulfamet DA Active SV [facility]WE[facility] hoxazole 11-05 00:00: [facility] trimetho DA Active SV SWELLING [facility] prim 11-05 00:00: [facility] levoflox DA Active IN hives [facility] acin 11-05 00:00: [facility] atorvast DA Active IN tongue swell [facility] atin 11-05 00:00: [facility] sulfamet DA Active SV [facility]WELL[place] 2018- [facility] hoxazole 03-17 [place] 00:[facility] [facility] trimetho DA Active SV SWELL[place] 2018- [facility] prim 03-17 [place] 00:[facility]: [facility] sulfamet DA Active SV 2018- [facility] hoxazole 03-17 [place] 00:[facility]: [facility] trimetho DA Active SV 2018-1 [facility] prim 03-17 [place] 00:[facility]: [facility] levoflox DA Active IN hives 2018-0 [facility] acin 07-20 [place] 00:00: [facility] atorvast DA Active IN tongue swell 2018-0 [facility] atin 07-20 [place] 00:00: [facility] levoflox DA Active IN 2019-0 [facility] acin 07-20 [place] 00:00: [facility] atorvast DA Active IN 2019-0 [facility] atin 07-20 [place] 00:00: [facility] Medications This patient has no known medications. Procedures This patient has no known procedures. Encounters Start End Encounter Admission Attending Care Care Encounter Source Date/Time Date/Time Type Type Clinicians Facility Department ID 2020-12-20 Outpatient [facility] [id number] [place] 16:32:36 0115 [facility] 2020-12-20 Outpatient COUNT INCLUDES [facility] [id number] [place] 16:23:11 0114 [facility] 2020-11-05 Inpatient TOSHIA MagallonTO PAIN [id number] [facility] 11:00:00 Jimmy [id number] [place] [facility] 2020-12-31 2020-12-31 Outpatient JOAN GUERRERO [id number] Joan 00:00:00 00:00:00 MECCAJesse Perdomo lorena 2020-11-05 2020-11-05 Outpatient ROSARIO Qamar, HCATO PAIN [id number] [facility] 09:33:00 09:33:00 Jimmy 08 [place] [facility] 2020-10-23 2020-10-23 Outpatient IRINA Barajas RADI [id number] [facility] 10:45:00 10:45:00 Gabriel [id number] [place] [facility] 2020-10-22 2020-10-22 Outpatient IRINA Benton RADI LA35 [id number] [facility] 12:57:00 12:57:00 Gabriel [id number] [place] [facility] 2020-02-22 2020-02-22 Outpatient Corona [facility] [id number] 00:00:00 00:00:00 Heath [id number] 2020-02-22 2020-02-22 Outpatient Corona [facility] [id number] 00:00:00 00:00:00 Heath [id number] Results Test Description Test Time Test Comments Results Result [facility] e Comments - XR FLUORO FOR 2020-11-05 SPINE INJ 13:40:00 [facility] 1950 Sex: M Patient Name: OSMAR KO Unit No: [id number] EXAMS: CPT CODE: [id number] XR FLUORO FOR SPINE INJ 79679 LUMBAR EPIRADICULAR INJECTION REFERRAL PHYSICIAN: Dr. Barajas PREOPERATIVE DIAGNOSIS: Lumbar Radiculitis POSTOPERATIVE DIAGNOSIS: Lumbar radiculitis PROCEDURES PERFORMED: Fluoroscopically guided needle localization of the right L3, L4, L5 spinal nerves with transforaminal epidurograms and epidural injection of local anesthetic and steroid. FINDINGS: Good flow of dye through all 3 neuroforamen. There is severe degenerative changes of the L4/5 and L5/S1 space with significant endplate spurring of inferior 4 superior 5 inferior 5 superior S1. Preinjection VAS 2/10. Postinjection VAS 0/10. Steroid response pending follow-up. ESTIMATED BLOOD LOSS: Minimal ANESTHESIA: TIVA COMPLICATIONS: None DETAILS OF PROCEDURE: After obtaining stable vital signs, informed consent and IV access, with no contraindications, the patient was taken to the operating room and placed in a prone position with all extremities padded and appropriate monitors placed. The patient was sterilely prepped and draped over the lumbosacral spine. Using fluoroscopic visualization the insertion sites were marked for paravertebral approaches and using standard technique, a 22 gauge needle was advanced to the base of each pedicle without paresthesias. Isovue-300 contrast 0.2 mL of was injected incrementally with frequent negative aspirations to produce each epidurogram. There were no signs of intravascular or intrathecal uptake. Bupivicaine 0.75% 0.33 mL with lidocaine 4% 0.66 mL and Decadron 6.67 mg was then incrementally injected with frequent negative aspirations and again there were no signs of intravascular or intrathecal uptake. The needles were removed and the patient was taken to the PACU in good condition. Image: Image 1 Image: Image 2 at 1340 Reported and signed by: JIMMY FOOTE MD CC: Technologist: Grace Sears(Dilia) Transcribed D/ (0917) [email or web address] [facility] NAME: OSMAR KO [address] [facility] PHYS: Jimmy Mariee [place] [address] : 1950 AGE: 69 SEX: M LOC: SURESH PHONE #: [phone] EXAM DATE: 11/05/2020 [place]US: [place] [facility] [place]: [phone] RAD #: D/C DT PAGE 1 Signed Report Patient Name: OSMAR KO Unit No: [id number] EXAMS: CPT CODE: [id number] XR FLUORO FOR SPINE INJ [id number] <Continued> Orig Print D/T: S: 11/05/2020 (1343) [facility] NAME: OSMAR KO [address] [facility] PHYS: Jimmy Mariee [place], [place] [address] : 1950 AGE: 69 SEX: M LOC: SURESH PHONE #: [phone] EXAM DATE: 11/05/2020 [place]US: [place] [facility] [place]: [phone] RAD #: D/C DT PAGE 2 Signed Report - MRI L-SPINE W/O 2020-10-22 CONT 15:26:00 [facility] 1950 Sex: M Patient Name: OSMAR KO Unit No: [id number] EXAMS: CPT CODE: [id number] MRI L-SPINE W/O CONT 11795 TECHNIQUE: Multiplanar, multisequence MRI examination performed of the lumbar spine without intravenous contrast material. COMPARISON: None available. FINDINGS: Five lumbar type vertebra are assumed. Alignment: Grade 1 retrolisthesis of L3-L4 Bone Lesion: No suspicious osseous lesion. Fracture: None present. Paraspinal Soft Tissues: Unremarkable. Conus Medullaris: Termination at L1 level. Morphology is normal. L1/2: No significant abnormality. L2/3: Disc desiccation and minimal bulge. Mild bilateral facet hypertrophy. There is mild central canal stenosis as well as mild bilateral foraminal narrowing. L3/4: Grade 1 retrolisthesis. A broad disc bulge is present with a superimposed right paracentral disc extrusion, which measures 6 mm in AP dimension, impinging the traversing right L4 nerve. Moderate central canal stenosis is present as well as mild to moderate bilateral foraminal stenosis. L4/5: A large disc bulge is present with a superimposed central disc extrusion which measures 5 mm in AP dimension, extending cephalad by 6 mm. Bilateral facet hypertrophy and ligamentum flavum thickening. There is severe central canal stenosis as well as moderate left, mild right foraminal stenosis. L5/S1: A large disc bulge is present with a small residual left paracentral disc protrusion measuring 3 mm. Laminectomy changes are noted. There is left lateral recess stenosis as well as moderate to severe left, severe right foraminal stenosis. No significant central canal stenosis. IMPRESSION: 1. Postoperative lumbar spine with up to severe central canal stenosis at L4-L5. 2. Right paracentral disc extrusion at L3-L4 which impinges the right L4 nerve. at 1526 Reported and signed by: Art Dixon M.D. [facility] NAME: OSMAR KO [address] [facility] [address] PHYS: COSTAA.Marcin - Gabriel Barajas : 1950 AGE: 69 SEX: [place], [place] [address] LOC: Y.MRI PHONE #: [phone] EXAM DATE: 10/22/2020 STATUS: REG CLI FAX #: [phone] RAD #: D/C DT PAGE 1 Signed Report (CONTINUED) Patient Name: OSMAR KO Unit No: [id number] EXAMS: CPT CODE: [id number] MRI L-SPINE W/O CONT 39727 <Continued> CC: Technologist: RT Josh(R) Transcribed D/ (6355) GueritaSLJ [facility] NAME: OSMAR KO [address] [facility] PHYS: Gabriel Desai : 1950 AGE: 69 SEX: M [place] [address] LOC: Y.MRI PHONE #: [phone] EXAM DATE: 10/22/2020 STATUS: REG CLI FAX #: [phone] RAD #: D/C DT PAGE 2 Signed Report Patient Name: OSMAR KO Unit No: [id number] EXAMS: CPT CODE: [id number] MRI L-SPINE W/O CONT 08725 <Continued> Orig Print D/T: S: 10/22/2020 (5245) [facility] NAME: OSMAR KO [address] [facility] PHYS: Gabriel Desai : 1950 AGE: 69 SEX: M [place] [address] LOC: Y.MRI PHONE #: [phone] EXAM DATE: 10/22/2020 STATUS: REG CLI FAX #: [phone] RAD #: D/C DT PAGE 3 Signed Report LIPID PROFILE (CORONARY RISK) 2019-01-14 08:51:00 Test [...] MG/DL 0-99 code = LDL) ADD ONPROTHROMBIN [id number] 08:03:00 Test Item Value Reference Range Interpretation [...] syste gema embolism. 3.0 - 4.5 PTT [id number] 08:03:00 Test Item Value Reference Range Interpretation Comments PTT ACTIVATED (test code = APTT) 26.2 SECONDS 22.0-33.0 N BASIC METABOLIC [id number] 07:56:00 Test Item Value Reference Range Interpretation [...] code = 9.1 MG/DL 8.4-10.2 N CA) [id number] 07:56:00 Test Item Value Reference Range Interpretation Comments MAGNESIUM (test code = MAG) 2.3 MG/DL 1.6-2.3 N BASIC METABOLIC [id number] 07:55:00 Test Item Value Reference Range Interpretation [...] CALCIUM (test code = MG/DL 8.7-9.7 CA) [id number] 07:55:00 Test Item Value Reference Range Interpretation Comments MAGNESIUM (test code = MAG) MG/DL 1.6-2.3 BASIC METABOLIC [id number] 07:53:00 Test Item Value Reference Range Interpretation [...] CALCIUM (test code = CA) MG/DL 8.7-9.7 [id number] 07:53:00 Test Item Value Reference Range Interpretation Comments MAGNESIUM (test code = MAG) MG/DL 1.6-2.3 BASIC METABOLIC [id number] 07:52:00 Test Item Value Reference Range Interpretation [...] CALCIUM (test code = CA) MG/DL 8.7-9.7 [id number] 07:52:00 Test Item Value Reference Range Interpretation Comments MAGNESIUM (test code = MAG) MG/DL 1.6-2.3 CBC W/AUTO [id number] 07:30:00 Test Item Value Reference Range Interpretation [...]
--- NOTE | 2021-01-03 18:58 | RAD REPORT ---
EXAM DESCRIPTION: Swapna Single View01/03/2021 6:45 pm CLINICAL HISTORY: sob COMPARISON: 2019 FINDINGS: Lungs are hyperaerated. The lungs appear clear of acute infiltrate. The heart is normal size IMPRESSION: No acute abnormalities displayed
[2021-01-03] MEDS ORDERED: METHYLPREDNISOLONE 125 MG INJ ONE (21:21)
[2021-01-03] MEDS ORDERED: IPRATROPIUM BROM 0.5MG/2.5ML ONE ×2 (21:21→23:32)
[2021-01-03] MEDS ORDERED: ALBUTEROL 2.5 MG/3 ML NEB SOL ONE ×2 (21:21→23:32)
[2021-01-03] MEDS ORDERED: MAGNESIUM SULFATE 1 gm IVPB 1 GM/100 ML BAG IV ONE (21:21)
[2021-01-03 22:08] LABS: Absolute Lymphocytes (CBC) 1.7 K/uL (0.7-4.9); Basophils % 0.7 % (0-1.3); Hematocrit 51.1 % (39.6-49.0); Lymphocytes % 13.8 % (15.3-44.8); RBC Red Blood Cell Count 5.71 M/uL (4.33-5.43)
[2021-01-03 23:09] LABS: Potassium 3.6 mmol/L (3.5-5.1)
--- NOTE | 2021-01-03 23:32 | EDPHYS ---
Physician Documentation [facility] Name: Bronson Tyler Age: 70 yrs Sex: Male : 1950 Arrival Date: 01/03/2021 Time: 17:20 Bed 23 Private MD: ED Physician Carlos Baez HPI: 01/03 23:03 This 70 yrs old Male presents to ER via Ambulatory with complaints of Shortness Of kb Breath. 23:03 The patient has shortness of breath at rest. Onset: The symptoms/episode began/occurred kb 5 day(s) ago. Duration: The symptoms are continuous. The patient's shortness of breath is aggravated by exertion, is alleviated by nothing. Associated signs and symptoms: Pertinent positives: non-productive cough, Pertinent negatives: fever. Severity of symptoms: At their worst the symptoms were moderate in the emergency department the symptoms are unchanged. The patient has experienced a previous episode. The patient has not recently seen a physician. Pt reports shortness of breath and congestion that started 5 days ago and has gotten worse. Pt has been on a medrol dose pack, zithromax and symbicort.. Historical: - Allergies: 17:35 Bactrim; ss 17:35 Levaquin; ss 17:35 Lipitor; ss - PMHx: 17:35 Hyperlipidemia; Hypertension; ss - Immunization history:: Client reports receiving the 2nd dose of the Covid vaccine. - Social history:: Smoking status: Patient reports the use of cigarette tobacco products, smokes one pack cigarettes per day. ROS: 23:03 Constitutional: Negative for fever, chills, and weight loss. kb 23:03 Respiratory: Positive for cough, dyspnea on exertion, shortness of breath, Negative for hemoptysis, orthopnea, pleurisy, sputum production, wheezing. 23:03 All other systems are negative. Exam: 23:03 Constitutional: This is a well developed, well nourished patient who is awake, alert, kb and in no acute distress. Head/Face: Normocephalic, atraumatic. ENT: Moist Mucous membranes Cardiovascular: Regular rate and rhythm with a normal S1 and S2. No gallops, murmurs, or rubs. No pulse deficits. Abdomen/GI: Soft, non-tender. No distention Skin: Warm, dry with normal turgor. Normal color. MS/ Extremity: Pulses equal, no cyanosis. Neurovascular intact. Full, normal range of motion. Neuro: Awake and alert, GCS 15, oriented to person, place, time, and situation. Moves all extremities. Normal gait. Psych: Awake, alert, with orientation to person, place and time. Behavior, mood, and affect are within normal limits. 23:03 Respiratory: mild respiratory distress is noted, Respirations: labored breathing, that is mild, Breath sounds: wheezing: inspiratory expiratory that is moderate, is heard diffusely. Vital Signs: 17:33 Pulse 82; Resp 18; Temp 98.2(TE); Pulse Ox 92% ; Weight 86.18 kg; Height 5 ft. 11 in. ss (180.34 cm); Pain 0/10; 17:35 BP 169 / 83; ss 21:05 BP 170 / 85; Pulse 76; Resp 22 S; Temp 97.8(O); Pulse Ox 94% on R/A; bb 01/04 01:57 BP 160 / 91; Pulse 79; Resp 19 S; Temp 97.8(O); Pulse Ox 91% on R/A; bb 01/03 17:33 Body Mass Index 26.50 (86.18 kg, 180.34 cm) ss MDM: 01/03 21:13 Patient medically screened. kb 23:04 Data reviewed: vital signs, nurses notes. Data interpreted: Pulse oximetry: on room air kb is 94 %. Interpretation: normal. 23:30 Counseling: I had a detailed discussion with the patient and/or guardian regarding: the kb historical points, exam findings, and any diagnostic results supporting the discharge/admit diagnosis, lab results, radiology results, the need for further work-up and treatment in the hospital. Physician consultation: Augie DEMPSEY was contacted at 23:30, regarding admission, to the telemetry unit. patient's condition, and will see patient in ED, shortly. 01/03 21: Order name: CBC with Diff; Complete Time: 22:12 kb 01/03 21: Order name: Basic Metabolic Panel; Complete Time: 23:13 kb 01/03 23:29 Order name: COVID-19 SARS RT PCR (Document "Date of Onset" if Symptomatic); Complete kb Time: 01/03 23:30 Order name: ABG kb 01/03 23:32 Order name: ABG Arterial Blood Gas; Complete Time: 00:50 EDMS 01/04 05:56 Order name: CBC with Automated Diff EDMS 01/04 06:16 Order name: Comprehensive Metabolic Panel EDFL 01/04 06:16 Order name: Phosphorus EDFL 01/04 06:16 Order name: Lipid Profile EDFL 01/04 06:16 Order name: T4 Free EDFL 01/04 06:16 Order name: Magnesium EDFL 01/04 06:18 Order name: Thyroid Stimulating Hormone EDFL 01/04 06:59 Order name: CBC Smear Scan EDFL 01/04 08:51 Order name: Glucose, Ancillary Testing EDFL 01/03 17:37 Order name: XRAY Chest (1 view); Complete Time: 19:18 ss 01/03 21:25 Order name: IV Start; Complete Time: 21:55 kb 01/03 22:10 Order name: Labs - recollect needed: recollect chemistry; Complete Time: 22:15 ss 01/03 23:41 Order name: CONS Physician Consult EDFL 01/04 11:38 Order name: Glucose, Ancillary Testing EDFL 01/04 16:34 Order name: Glucose, Ancillary Testing EDFL 01/04 19:52 Order name: Glucose, Ancillary Testing EDFL 01/05 03:35 Order name: CBC with Automated Diff EDFL 01/05 03:48 Order name: Comprehensive Metabolic Panel EDFL 01/05 08:10 Order name: Glucose, Ancillary Testing EDFL 01/05 11:48 Order name: Glucose, Ancillary Testing EDFL Administered Medications: 21:15 Drug: DuoNeb (albuterol 2.5 mg, ipratropium 0.5 mg) (3:1) (2.5 mg - 0.5 mg) 3 ml Route: bb Nebulizer; 22:00 Follow up: Response: Wheezing diminished bb 21:45 Drug: SOLU-Medrol (methylPrednisoLONE) 125 mg Route: IVP; Site: left antecubital; bb 22:00 Follow up: Response: No adverse reaction bb 21:55 Drug: Magnesium Sulfate 1 grams Route: IVPB; Infused Over: 1 hrs; Site: left bb antecubital; 22:15 Follow up: IV Status: Completed infusion; IV Intake: 100ml bb 23:34 Drug: Albuterol 2.5 mg Route: Inhalation; mr2 Disposition: 01/05 23:20 Co-signature as Attending Physician, Carlos Baez MD. 7 Disposition Summary: 01/03/21 23:31 Hospitalization Ordered Hospitalization Status: Observation kb Provider: Tab Huang Condition: Stable kb Problem: new kb Symptoms: are unchanged kb Bed/Room Type: Standard kb Location: [facility] ER HOLD(01/03/21 23:52) cg Room Assignment: ERHOLD-(01/03/21 23:52) cg Diagnosis - Acute bronchitis, unspecified kb - Hypoxia kb Forms: - Medication Reconciliation Form kb - SBAR form kb Signatures: Dispatcher [employer] EDMS Hafsa Trotter, TAMIKA RUIZ-Estefani Haywood RN RN bb Deborah Schumacher RN RN ss Xochilt Davila RN RN cg Carlos Baez MD MD [facility] Ephriam Rosario RN RN mr2 Corrections: (The following items were deleted from the chart) 01/03 23:31 23:03 Pt reports shortness of breath and congestion that started 5 days ago and has kb gotten worse. . kb 23:52 23:31 Telemetry/MedSurg (observation) kb cg 23:52 23:31 kb cg
--- NOTE | 2021-01-03 23:32 | ER ---
Nurse's Notes [facility] Name: Bronson Tyler Age: 70 yrs Sex: Male : 1950 Arrival Date: 01/03/2021 Time: 17:20 Bed 23 Private MD: Diagnosis: Acute bronchitis, unspecified;Hypoxia Presentation: 01/03 17:33 Chief complaint: Patient states: chest congestion and SOB that began 5 days ago. ss Coronavirus screen: Client denies travel out of the [place] in the last 14 days. Client presents with at least one sign or symptom that may indicate coronavirus-19. Standard/surgical mask placed on the client. Ebola Screen: Patient denies exposure to infectious person. Patient denies travel to an Ebola-affected area in the 21 days before illness onset. Initial Sepsis Screen: Does the patient meet any 2 criteria? No. Patient's initial sepsis screen is negative. Does the patient have a suspected source of infection? No. Patient's initial sepsis screen is negative. Risk Assessment: Do you want to hurt yourself or someone else? Patient reports no desire to harm self or others. Onset of symptoms was December 29, 2020. 17:33 Method Of Arrival: Ambulatory ss 17:33 Acuity: GHANSHYAM 2 ss Triage Assessment: 01/04 01:32 Respiratory: bb Historical: - Allergies: 01/03 17:35 Bactrim; ss 17:35 Levaquin; ss 17:35 Lipitor; ss - PMHx: 17:35 Hyperlipidemia; Hypertension; ss - Immunization history:: Client reports receiving the 2nd dose of the Covid vaccine. - Social history:: Smoking status: Patient reports the use of cigarette tobacco products, smokes one pack cigarettes per day. Screenin:18 Abuse screen: Denies threats or abuse. Nutritional screening: No deficits noted. bb Tuberculosis screening: No symptoms or risk factors identified. Fall Risk None identified. Assessment: 21:18 General: Appears distressed, uncomfortable, Behavior is calm, cooperative, Reports bb shortness of breath since Wednesday progressively getting worse. Neuro: Level of Consciousness is awake, alert, obeys commands, Oriented to person, place, time, situation. Cardiovascular: Capillary refill < 3 seconds Patient's skin is warm and dry. Respiratory: Airway is patent Respiratory effort is labored, Respiratory pattern is tachypnea 21:18 Respiratory: Breath sounds are diminished bilaterally. Breath sounds with wheezes bb bilaterally. GI: No signs and/or symptoms were reported involving the gastrointestinal system. Derm: Skin is pink, warm \T\ dry. Musculoskeletal: Circulation, motion, and sensation intact. 22:30 Reassessment: pt is A\T\O x 4, resp less labored states he feels a little better. bb 01/04 01:10 Reassessment: report given to Molly BOSWELL for ED hold. bb Vital Signs: 01/03 17:33 Pulse 82; Resp 18; Temp 98.2(TE); Pulse Ox 92% ; Weight 86.18 kg; Height 5 ft. 11 in. ss (180.34 cm); Pain 0/10; 17:35 BP 169 / 83; ss 21:05 BP 170 / 85; Pulse 76; Resp 22 S; Temp 97.8(O); Pulse Ox 94% on R/A; bb 01/04 01:57 BP 160 / 91; Pulse 79; Resp 19 S; Temp 97.8(O); Pulse Ox 91% on R/A; bb 01/03 17:33 Body Mass Index 26.50 (86.18 kg, 180.34 cm) ss ED Course: 01/03 17:20 Patient arrived in ED. as 17:35 Triage completed. ss 17:35 Arm band placed on right wrist. ss 18:44 XRAY Chest (1 view) In Process Unspecified. EDMS 21:10 Patient has correct armband on for positive identification. Bed in low position. Call bb light in reach. Side rails up X 1. Adult w/ patient. child monitor on. Pulse ox on. NIBP on. Warm blanket given. Pillow given. 21:13 Hafsa Trotter FNP-C is PHCP. kb 21:13 Carlos Baez MD is Attending Physician. kb 21:17 Estefani García, ANDREIA is Primary Nurse. bb 21:45 Initial lab(s) drawn, by me, sent to lab. Inserted saline lock: 20 gauge in left bb antecubital area, using aseptic technique. Blood collected. 23:30 Tab Huang MD is Hospitalizing Provider. kb 01/04 01:30 No provider procedures requiring assistance completed. Patient admitted, IV remains in bb place. Administered Medications: 01/03 21:15 Drug: DuoNeb (albuterol 2.5 mg, ipratropium 0.5 mg) (3:1) (2.5 mg - 0.5 mg) 3 ml Route: bb Nebulizer; 22:00 Follow up: Response: Wheezing diminished bb 21:45 Drug: SOLU-Medrol (methylPrednisoLONE) 125 mg Route: IVP; Site: left antecubital; bb 22:00 Follow up: Response: No adverse reaction bb 21:55 Drug: Magnesium Sulfate 1 grams Route: IVPB; Infused Over: 1 hrs; Site: left bb antecubital; 22:15 Follow up: IV Status: Completed infusion; IV Intake: 100ml bb 23:34 Drug: Albuterol 2.5 mg Route: Inhalation; mr2 Intake: 22:15 IV: 100ml; Total: 100ml. Outcome: 23:31 Decision to Hospitalize by Provider. 01/04 01:32 Admitted to Tele accompanied by nurse, via wheelchair, with chart, Report called to Molly BOSWELL Condition: stable Instructed on the need for admit. 01:58 Patient left the ED. 01/05 13:22 Patient left the ED. em1 Signatures: Dispatcher [employer] EDMS Hafsa Trotter, TAMIKA RUIZ-Yadira Richard Brenda, RN RN Shoaib Martínez em1 Deborah Schumacher RN RN Ephraim Rosario RN RN mr2
--- NOTE | 2021-01-04 00:33 | P.HP ---
Certification for Inpatient Patient admitted to: Inpatient With expected LOS: <2 Midnights Patient will require the following post-hospital care: None Practitioner: I am a practitioner with admitting privileges, knowledge of patient current condition, hospital course, and medical plan of care. Services: Services provided to patient in accordance with Admission requirements found in Title 42 Section 412.3 of the Code of Federal Regulations Patient History Date of Service: 01/04/21 Reason for admission: SOB History of Present Illness: Mr. Tyler is a 70 yo M with HTN, HLD, MAYTE on CPAP at bedtime, tobacco use disorder x 50 years who presents with nonproductive cough, SOB, SEAMAN, wheezing since Wednesday. He says he feels like he can only take shallow breaths. Denies fever, nausea, vomiting, pleuritic pain. Denies edema, PND, orthopnea. He was prescribed a Zpack (1 dose remaining), medrol dose pack, albuterol inhaler and symbicort with mild relief of symptoms. He says he has never been formally diagnosed with COPD. O2 sats 90-92% at bedside. WBC 12.3, BUN 24, GFR 78, Glu 136. Allergies levofloxacin [From Levaquin] Allergy (Severe, Verified 11/27/19 23:40) Anaphylaxis atorvastatin calcium [From Lipitor] Allergy (Verified 11/27/19 23:40) Anaphylaxis sulfamethoxazole [From Bactrim] Allergy (Verified 11/27/19 23:40) Hives/Rash trimethoprim [From Bactrim] Allergy (Verified 11/27/19 23:40) Hives/Rash Home Medications: Amlodipine Besylate 10 mg PO DAILY 06/08/16 Aspirin [Aspirin EC 81 MG] 81 mg PO DAILY 06/08/16 Carvedilol 25 mg PO BID 06/08/16 Clonidine HCl 0.2 mg PO BID 06/08/16 Dexlansoprazole [Dexilant] 60 mg PO DAILY 06/08/16 Docosahexanoic AC/Epa [Fish Oil 1,000 MG*] 1,000 mg PO DAILY 06/08/16 Hydralazine HCl 50 mg PO TID 06/08/16 Meloxicam 15 mg PO DAILY 06/08/16 Rosuvastatin [Crestor*] 20 mg PO DAILY 06/08/16 Ubidecarenone [Co Q-10] 200 mg PO DAILY 06/08/16 L.acidoph,Paracasei, B.lactis [Probiotic] 1 each PO DAILY 11/01/18 Magnesium Oxide [Magnesium] 250 mg PO DAILY 11/01/18 Ferrous Fumarate/Vit Bcomp&C [Super B-Complex Caplet] 1 each PO DAILY 11/27/19 Mv-Mins/Folic/Lycopene/Ginkgo [One Daily Men's 50+ Tablet] 1 each PO DAILY 11/27/19 Nortriptyline HCl [Pamelor*] 10 mg PO DAILY 11/27/19 Irbesartan [Avapro*] 150 mg PO BID 11/28/19 Cyanocobalamin [Vitamin B-12*] 5,000 mcg PO DAILY #30 tab 11/30/19 Fluticasone/Salmeterol [Advair 250/50 Diskus*] 1 puff IH BID #0 11/30/19 Hydrocodone 7.5/APAP 325 [[place] 7.5/325 mg] 1 tab PO Q6H PRN #20 tab 11/30/19 Multivit,Ther Iron,Ca,FA & Min [Centrum Tablet*] 1 tab PO DAILY #30 tab 11/30/19 - Past Medical/Surgical History Diabetic: No -: HTN -: Sleep apnea -: Melanoma that was excised -: HLD -: appy -: knee surgery Psychosocial/ Personal History: - Family History Father -: Lung disease Mother -: Other (see notes) Notes: Parkinsons - Social History Smoking Status: Current every day smoker Alcohol use: Yes CD- Drugs: No Caffeine use: Yes Place of Residence: Home Review of Systems 10-point ROS is otherwise unremarkable General: Unremarkable Eyes: Unremarkable ENT: Unremarkable Respiratory: Cough, Shortness of Breath, SOB with Excertion, Wheezing, As per HPI Cardiovascular: Unremarkable Gastrointestinal: Unremarkable Genitourinary: Unremarkable Musculoskeletal: Unremarkable Integumentary: Unremarkable Neurological: Unremarkable Lymphatics: Unremarkable Physical Examination - Physical Exam General: Alert, In no apparent distress HEENT: Atraumatic, PERRLA, Mucous membr. moist/pink, EOMI, Sclerae nonicteric Neck: Supple, 2+ carotid pulse no bruit, No LAD, Without JVD or thyroid abnormality Respiratory: Normal air movement, Diminished, Expiratory wheezes, Rhonchi/gurgles Cardiovascular: Regular rate/rhythm, Normal S1 S2 Gastrointestinal: Normal bowel sounds, No tenderness Musculoskeletal: No tenderness Integumentary: No rashes Neurological: Normal speech, Normal strength at 5/5 x4 extr, Normal tone, Normal affect Lymphatics: No axilla or inguinal lymphadenopathy - Studies Laboratory Data (last 24 hrs) 01/03/21 22:18: Sodium 141, Potassium 3.6, BUN 24 H, Creatinine 0.95, Glucose 136 H 01/03/21 21:45: WBC 12.30 H, Hgb 17.1, Hct 51.1 H, Plt Count 292 Assessment and Plan - Problems (Diagnosis) (1) COPD with exacerbation Current Visit: No Status: Acute (2) HTN (hypertension) Onset Date: 06/08/16 Current Visit: No Status: Chronic Qualifiers: Hypertension type: essential hypertension Qualified Code(s): I10 - Essential (primary) hypertension (3) Hyperlipidemia Current Visit: No Status: Chronic Qualifiers: Hyperlipidemia type: unspecified Qualified Code(s): E78.5 - Hyperlipidemia, unspecified (4) Obstructive sleep apnea Current Visit: No Status: Chronic (5) Tobacco abuse Current Visit: No Status: Chronic - Plan pulm consulted, RT consulted O2 as needed continue IV steroids, IV antibiotics, breathing treatments antittussives as needed hydralazine PRN for BP spikes reconcile and continue home medications CPAP at bedtime DVT ppx Discharge Plan: Home Plan to discharge in: 48 Hours - Advance Directives Does patient have a Living Will: No Does patient have a Durable POA for Healthcare: No - Code Status/Comfort Care Code Status Assessed: Yes (full code ) Critical Care: No Time Spent Managing Pts Care (In Minutes): 70
[2021-01-04 00:37] LABS: Arterial Blood Carboxyhemoglob 1.4 % (0-1.5); Blood Gas Oxyhemoglobin 89.6 % (94-97); Blood O2 Saturation 91.7 % (92-98.5)
[2021-01-04] MEDS ORDERED: IPRATROPIUM BROM 0.5MG/2.5ML NEB PRN (01:53)
[2021-01-04] MEDS ORDERED: ONDANSETRON 4 MG/2 ML VIAL IV PRN (01:53)
[2021-01-04] MEDS ORDERED: ACETAMINOPHEN 500 MG TAB PO PRN (01:53)
[2021-01-04] MEDS ORDERED: ALBUTEROL 2.5 MG/3 ML NEB SOL NEB PRN ×2 (01:53→11:00)
[2021-01-04 02:19] VITALS: BMI 26.4
[2021-01-04] MEDS ORDERED: METHYLPREDNISOLONE 40 MG INJ ONE ×2 (04:04→08:31)
[2021-01-04] MEDS ORDERED: METHYLPREDNISOLONE 40 MG INJ IV SCH (05:00)
[2021-01-04 05:50] LABS: Basophils % 0.3 % (0-1.3); Hematocrit 49.6 % (39.6-49.0); Lymphocytes % 9.2 % (15.3-44.8); MPV 8.5 fL (7.6-11.3); RBC Red Blood Cell Count 5.51 M/uL (4.33-5.43)
[2021-01-04 06:15] LABS: Albumin 3.5 g/dL (3.4-5.0); Bilirubin Total 0.3 mg/dL (0.2-1.0); Magnesium 2.6 mg/dL (1.8-2.4); Potassium 4.1 mmol/L (3.5-5.1); Protein, Total 7.4 g/dL (6.4-8.2)
[2021-01-04 06:18] LABS: Thyroid Stimulating Hormone 0.082 uIU/mL (0.360-3.740)
[2021-01-04 06:59] LABS: Blood Morphology Comment NOT SEEN (NOT SEEN); Platelet Estimate ADEQ; White Blood Cell Scan OK (OK)
[2021-01-04] MEDS: INSULIN -REGULAR HUMAN 50 UNIT/0.5 ML ML SQ SCH ×4 (07:30→20:03)
[2021-01-04] MEDS ORDERED: ENOXAPARIN 40 MG/0.4 ML SQ ONE (08:31)
[2021-01-04] MEDS ORDERED: INSULIN -REGULAR HUMAN 50 UNIT/0.5 ML ML ONE ×2 (08:35→11:37)
[2021-01-04] MEDS ORDERED: BENZONATATE 100 MG CAP PO ONE ×2 (08:40→16:41)
[2021-01-04] MEDS ORDERED: CEFTRIAXONE 1000 MG/VIAL ONE (08:41)
[2021-01-04] MEDS ORDERED: NA CHLORIDE 0.9% 50 ML ONE (08:41)
[2021-01-04] MEDS: ENOXAPARIN 40 MG/0.4 ML SQ SCH (08:46)
[2021-01-04] MEDS: BENZONATATE 100 MG CAP PO PRN ×2 (08:46→16:44)
[2021-01-04] MEDS ORDERED: AZITHROMYCIN IV 500 MG in NA CHLORIDE 0.9% 250 ML IVPB SCH (09:00)
[2021-01-04] MEDS ORDERED: CEFTRIAXONE 1,000 MG in NA CHLORIDE 0.9% 50 ML IVPB SCH (09:00)
[2021-01-04] MEDS ORDERED: INFLUENZA VACCINE (for 6+ mo) 0.5 ML DOSE IMVAC ONE ×2 (09:00→11:52)
--- NOTE | 2021-01-04 10:53 | P.CNS ---
Date of Consult: 01/04/21 Reason for Consult: COPD with exacerbation Chief Complaint: SOB History of Present Illness: Patient is 70 years of age with hypertension struct of sleep apnea heavy smoker admitted with acute shortness of breath became progressively worse he was treated outpatient with Medrol Dosepak Z-Eric albuterol and Symbicort inhaler he became progressively worse and it appeared in the hospital is currently stable prior history of obstructive airways disease Allergies levofloxacin [From Levaquin] Allergy (Severe, Verified 11/27/19 23:40) Anaphylaxis atorvastatin calcium [From Lipitor] Allergy (Verified 11/27/19 23:40) Anaphylaxis sulfamethoxazole [From Bactrim] Allergy (Verified 11/27/19 23:40) Hives/Rash trimethoprim [From Bactrim] Allergy (Verified 11/27/19 23:40) Hives/Rash Home Medications: Amlodipine Besylate 10 mg PO DAILY 06/08/16 Aspirin [Aspirin EC 81 MG] 81 mg PO DAILY 06/08/16 Carvedilol 25 mg PO BID 06/08/16 Clonidine HCl 0.2 mg PO BID 06/08/16 Dexlansoprazole [Dexilant] 60 mg PO DAILY 06/08/16 Docosahexanoic AC/Epa [Fish Oil 1,000 MG*] 1,000 mg PO DAILY 06/08/16 Hydralazine HCl 50 mg PO TID 06/08/16 Meloxicam 15 mg PO DAILY 06/08/16 Rosuvastatin [Crestor*] 20 mg PO DAILY 06/08/16 Ubidecarenone [Co Q-10] 200 mg PO DAILY 06/08/16 L.acidoph,Paracasei, B.lactis [Probiotic] 1 each PO DAILY 11/01/18 Magnesium Oxide [Magnesium] 250 mg PO DAILY 11/01/18 Ferrous Fumarate/Vit Bcomp&C [Super B-Complex Caplet] 1 each PO DAILY 11/27/19 - Past Medical/Surgical History Diabetic: No -: HTN -: Sleep apnea -: Melanoma that was excised -: HLD -: appy -: knee surgery Psychosocial/ Personal History: - Family History Father Medical History: Lung disease Mother Medical History: Other (see notes) Notes: Parkinsons - Social History Smoking Status: Current every day smoker Alcohol use: Yes CD- Drugs: No Caffeine use: Yes Place of Residence: Home Review of Systems -point ROS is otherwise unremarkable Physical Examination Temp Pulse Resp BP Pulse Ox 98.4 F 84 16 155/78 H 90 L 01/04/21 08:00 01/04/21 08:00 01/04/21 08:00 01/04/21 08:00 01/04/21 08:00 General: Alert, In no apparent distress, Oriented x3 HEENT: Atraumatic Neck: Supple Respiratory: Clear to auscultation bilaterally, Friction rub Cardiovascular: Regular rate/rhythm Gastrointestinal: Normal bowel sounds, Soft and benign Musculoskeletal: No clubbing, No swelling Integumentary: No rashes, No breakdown Neurological: Cranial nerves 3-12 intact Laboratory Data (last 24 hrs) 01/03/21 22:18: Sodium 141, Potassium 3.6, BUN 24 H, Creatinine 0.95, Glucose 136 H 01/03/21 21:45: WBC 12.30 H, Hgb 17.1, Hct 51.1 H, Plt Count 292 - Problems (1) COPD with exacerbation Current Visit: No Status: Acute Plan: Patient is 70 years of age with a history of dyspnea on exertion heavy smoker admitted with worsening shortness of breath most likely he has COPD exacerbation chest x-ray shows hyperinflation consistent with COPD labs reviewed plan to discharge on prednisone 20 mg p.o. twice daily for 10 days in addition to Symbicort 2 puffs twice a day been counseled not to smoke follow-up with me in 2 weeks he does not qualify for home O2
[2021-01-04] MEDS ORDERED: IPRATROPIUM BROM 0.5MG/2.5ML ONE ×2 (13:44→20:45)
[2021-01-04] MEDS: IPRATROPIUM BROM 0.5MG/2.5ML NEB SCH ×2 (13:54→20:50)
[2021-01-04] MEDS ORDERED: ALBUTEROL 2.5 MG/3 ML NEB SOL ONE (20:45)
[2021-01-04] MEDS ORDERED: predniSONE 20 MG TAB ONE (20:46)
[2021-01-04] MEDS: predniSONE 20 MG TAB PO SCH (20:49)
[2021-01-05] MEDS: IPRATROPIUM BROM 0.5MG/2.5ML NEB SCH ×2 (02:00→08:20)
[2021-01-05] MEDS ORDERED: HYDRALAZINE HCL 20 MG/ML VIAL ONE ×2 (02:13→11:40)
[2021-01-05] MEDS: HYDRALAZINE HCL 20 MG/ML VIAL IV PRN ×2 (02:14→11:41)
[2021-01-05 03:26] LABS: Absolute Lymphocytes (CBC) 1.2 K/uL (0.7-4.9); Basophils % 0.4 % (0-1.3); Hematocrit 46.2 % (39.6-49.0); Lymphocytes % 7.9 % (15.3-44.8); MPV 8.2 fL (7.6-11.3); RBC Red Blood Cell Count 5.16 M/uL (4.33-5.43)
[2021-01-05 03:48] LABS: Albumin 3.3 g/dL (3.4-5.0); Bilirubin Total 0.2 mg/dL (0.2-1.0); Potassium 3.6 mmol/L (3.5-5.1)
[2021-01-05] MEDS: INSULIN -REGULAR HUMAN 50 UNIT/0.5 ML ML SQ SCH ×2 (07:30→11:30)
[2021-01-05] MEDS ORDERED: ALBUTEROL 2.5 MG/3 ML NEB SOL ONE (08:20)
[2021-01-05] MEDS ORDERED: IPRATROPIUM BROM 0.5MG/2.5ML ONE (08:20)
[2021-01-05] MEDS ORDERED: POTASSIUM CL SA 10 MEQ TAB PO ONE ×2 (09:00→09:29)
[2021-01-05] MEDS ORDERED: predniSONE 20 MG TAB ONE (09:28)
[2021-01-05] MEDS ORDERED: ENOXAPARIN 40 MG/0.4 ML SQ ONE (09:29)
[2021-01-05] MEDS: ENOXAPARIN 40 MG/0.4 ML SQ SCH (09:32)
[2021-01-05] MEDS: predniSONE 20 MG TAB PO SCH (09:32)
--- NOTE | 2021-01-05 11:35 | P.DS ---
Admission Date: 01/03/21 Discharge Date: 01/05/21 Disposition: ROUTINE DISCHARGE Discharge Condition: GOOD Reason for Admission: SOB Consultations: Pulmonay Procedures: CXR Neg Brief History of Present Illness: Mr. Tyler is a 70 yo M with HTN, HLD, MAYTE on CPAP at bedtime, tobacco use disorder x 50 years who presents with nonproductive cough, SOB, SEAMAN, wheezing since Wednesday. He says he feels like he can only take shallow breaths. Denies fever, nausea, vomiting, pleuritic pain. Denies edema, PND, orthopnea. He was prescribed a Zpack (1 dose remaining), medrol dose pack, albuterol inhaler and symbicort with mild relief of symptoms. He says he has never been formally diagnosed with COPD. O2 sats 90-92% at bedside. WBC 12.3, BUN 24, GFR 78, Glu 136. Hospital Course: Pt was admitted with progressive SOB and found to have COPD exac with neg CXR, he was stated on steroids, ABX and inhalers,he felt much better, he was seen by PUl and advised to quit smoking, ABX stopped by dr carmona and advised to DC on prednison 20 mg bid for 10 day with symibcort,he will follow up with Pul in the clinic, his BP meds cont as before,and he will be DC today in stable condition to follow up with PCP in one wk Physical exam General: Alert, In no apparent distress HEENT: Atraumatic, PERRLA, Mucous membr. moist/pink, EOMI, Sclerae nonicteric Neck: Supple, 2+ carotid pulse no bruit, No LAD, Without JVD or thyroid abnormality Respiratory: Normal air movement, Diminished, Expiratory wheezes, Rhonchi/gurgles Cardiovascular: Regular rate/rhythm, Normal S1 S2 Gastrointestinal: Normal bowel sounds, No tenderness Musculoskeletal: No tenderness Integumentary: No rashes Neurological: Normal speech, Normal strength at 5/5 x4 extr, Normal tone, Normal affect Lymphatics: No axilla or inguinal lymphadenopathy Vital Signs/Physical Exam: Temp Pulse Resp BP Pulse Ox 98.0 F 72 19 145/74 H 92 01/05/21 07:53 01/05/21 07:53 01/05/21 07:53 01/05/21 07:53 01/05/21 07:53 Laboratory Data at Discharge: WBC 15.90 K/uL (4.3-10.9) H D 01/05/21 02:56 Hgb 15.4 g/dL (13.6-17.9) 01/05/21 02:56 Hct 46.2 % (39.6-49.0) 01/05/21 02:56 Plt Count 286 K/uL (152-406) 01/05/21 02:56 Sodium 142 mmol/L (136-145) 01/05/21 02:56 Potassium 3.6 mmol/L (3.5-5.1) 01/05/21 02:56 BUN 21 mg/dL (7-18) H 01/05/21 02:56 Creatinine 0.92 mg/dL (0.55-1.3) 01/05/21 02:56 Glucose 174 mg/dL (74-106) H 01/05/21 02:56 Phosphorus 3.0 mg/dL (2.5-4.9) 01/04/21 04:53 Magnesium 2.6 mg/dL (1.8-2.4) H 01/04/21 04:53 Total Bilirubin 0.2 mg/dL (0.2-1.0) 01/05/21 02:56 AST 8 U/L (15-37) L 01/05/21 02:56 ALT 25 U/L (12-78) 01/05/21 02:56 Alkaline Phosphatase 70 U/L (45-117) 01/05/21 02:56 Triglycerides 55 mg/dL (<150) 01/04/21 04:53 Cholesterol 120 mg/dL (<200) 01/04/21 04:53 HDL Cholesterol 45 mg/dL (40-60) 01/04/21 04:53 Cholesterol/HDL Ratio 2.67 01/04/21 04:53 Home Medications: Amlodipine Besylate 10 mg PO DAILY 06/08/16 Aspirin [Aspirin EC 81 MG] 81 mg PO DAILY 06/08/16 Carvedilol 25 mg PO BID 06/08/16 Clonidine HCl 0.2 mg PO BID 06/08/16 Dexlansoprazole [Dexilant] 60 mg PO DAILY 06/08/16 Docosahexanoic AC/Epa [Fish Oil 1,000 MG*] 1,000 mg PO DAILY 06/08/16 Hydralazine HCl 50 mg PO TID 06/08/16 Meloxicam 15 mg PO DAILY 06/08/16 Rosuvastatin [Crestor*] 20 mg PO DAILY 06/08/16 Ubidecarenone [Co Q-10] 200 mg PO DAILY 06/08/16 L.acidoph,Paracasei, B.lactis [Probiotic] 1 each PO DAILY 11/01/18 Magnesium Oxide [Magnesium] 250 mg PO DAILY 11/01/18 Ferrous Fumarate/Vit Bcomp&C [Super B-Complex Caplet] 1 each PO DAILY 11/27/19 Budesonide/Formoterol Fumarate [Symbicort 160-4.5 Mcg Inhaler] 2 puff IH BID #3 hfa.aer.ad 01/05/21 predniSONE [Prednisone*] 20 mg PO BID 10 Days #20 tab 01/05/21 New Medications: predniSONE [Prednisone*] 20 mg PO BID 10 Days #20 tab Budesonide/Formoterol Fumarate [Symbicort 160-4.5 Mcg Inhaler] 2 puff IH BID #3 hfa.aer.ad Physician Discharge Instructions: follow up with Dr carmona in 1-2 wks, follow up with PCP in 1 wk Diet: AHA Activity: Ad meryl Followup: NONE,NONE [Primary Care Provider] -
[2021-01-05 11:39] VITALS: TEMP 98.1; O2SAT 92
[2021-01-05 12:23] VITALS: BP 158/81
== END 2021-01-05 12:32 | disposition home or self-care (01) | DRG 192 ==
LOC: ER 17:16 → ERHOLD 23:52
PROVIDERS: ADMIT Internal Medicine; ATTEND Internal Medicine
PROC: 5A09357 Assistance with Respiratory Ventilation, Less than 24 Consecutive Hours, Continuous Positive Airway Pressure (ICD-10-PCS; principal; 2021-01-04)
DX: J44.1 Chronic obstructive pulmonary disease with (acute) exacerbation (principal); J44.0 Chronic obstructive pulmonary disease with (acute) lower respiratory infection; J20.9 Acute bronchitis, unspecified; E78.5 Hyperlipidemia, unspecified; I10 Essential (primary) hypertension; G47.33 Obstructive sleep apnea (adult) (pediatric); F17.210 Nicotine dependence, cigarettes, uncomplicated; Z71.6 Tobacco abuse counseling; Z88.8 Allergy status to other drugs, medicaments and biological substances; Z88.1 Allergy status to other antibiotic agents; Z79.52 Long term (current) use of systemic steroids; Z99.89 Dependence on other enabling machines and devices; Z79.82 Long term (current) use of aspirin; Z79.899 Other long term (current) drug therapy; Z20.822 Contact with and (suspected) exposure to COVID-19
CPT/HCPCS: 36415; 71045; 80048; 80053; 80061; 82805; 82947; 83735; 84100; 84439; 84443; 85025; 94640; 94760; 96365; 96375; 99285; J0360; J0456; J1650; J2920; J2930; J3475; J7050; J7512; Q2035; U0003